=== PATIENT | male | born 1965 | race Caucasian/White ===

== ENCOUNTER 2017-09-30 21:17 | Inpatient (IN) | payer BC ==
[~2017-09-30] VITALS: Ht 167.6 cm; Wt 82.6 kg
[2017-10-01] VITALS: BP 145/87; PULSE 85; RESP 17; TEMP 97.6; O2SAT 95
[2017-10-01 01:05] LABS: HEMOGLOBIN 7.3 GM/DL (13.0-17.0); MEAN CORPUSCULAR HEMOGLOBIN 31.4 PG (27.0-34.0); MEAN CORPUSCULAR HGB CONC 34.9 % (32.0-36.0); MEAN PLATELET VOLUME 7.1 FL (7.0-11.0); PLATELET COUNT 60 TH/MM3 (150-450); RED BLOOD COUNT 2.32 MIL/MM3 (4.50-5.90); RED CELL DISTRIBUTION WIDTH 18.3 % (11.6-17.2); WHITE BLOOD COUNT 4.5 TH/MM3 (4.0-11.0)
[2017-10-01 01:17] LABS: HEMATOCRIT 20.9 % (39.0-51.0)
[2017-10-01] MEDS ORDERED: CURCPOW PO (01:36)
[2017-10-01] MEDS ORDERED: UBID200C3 PO (01:36)
[2017-10-01] MEDS ORDERED: BETA20PO PO (01:36)
[2017-10-01] MEDS ORDERED: [UNRECOGNIZED DRUG - OTHER] PO (01:36)
[2017-10-01] MEDS ORDERED: VITA100T54 PO (01:36)
[2017-10-01] MEDS ORDERED: VITA500T4 PO (01:36)
[2017-10-01] MEDS ORDERED: NORC5TAB PO (01:36)
[2017-10-01] MEDS ORDERED: [UNRECOGNIZED DRUG - OTHER] PO (01:36)
[2017-10-01] MEDS ORDERED: VITA100018 PO (01:36)
[2017-10-01] MEDS ORDERED: METH750T PO (01:36)
[2017-10-01] MEDS ORDERED: METO50TA PO (01:36)
[2017-10-01 01:43] LABS: ALBUMIN 1.8 GM/DL (3.4-5.0); BICARBONATE 21.6 MEQ/L (21.0-32.0); CALCIUM 11.8 MG/DL (8.5-10.1); CALCIUM-PROTEIN CORRECTED 8.7 MG/DL (8.5-10.1); CREATININE 4.7 MG/DL (0.60-1.30); TOTAL BILIRUBIN ADULT 0.4 MG/DL (0.2-1.0); TOTAL PROTEIN 12.8 GM/DL (6.4-8.2)
[2017-10-01 02:36] LABS: ATYPICAL LYMPHOCYTES 9 % (0-0); BANDS 4 % (0-6); BLASTS 1 % (0-0); CORRECTED NUCLEATED RBC 2 /100 WBC (0-0); LYMPHOCYTES 43 % (9-44); METAMYELOCYTES 2 % (0-1); MONOCYTES 7 % (0-8); NEUTROPHIL # MANUAL DIFF 1.6 TH/MM3 (1.8-7.7); NUCLEATED RED BLOOD CELL 2 (0-0); PLASMA CELLS 3 % (0-0); POLYS (SEG NEUTROPHILS) 29 % (16-70)
[2017-10-01 02:37] LABS: ROULEAUX PRESENT (NORMAL)
--- NOTE | 2017-10-01 03:22 | HHI.HP ---
HPI Service [facility] Primary Care Physician Non-Staff Admission Diagnosis Acute Renal Failure . Diagnoses: (1) Acute renal failure (2) Multiple myeloma Chief Complaint: Back pain Travel History International Travel<30 Days: No Contact w/Intl Traveler <30 Da: No History of Present Illness Mr. Ambrosio is a 52 y/o male desiring only holistic treatment of multiple myeloma diagnosed in June 2017 with history of atrial fibrillation s/p cardioversion x 3 - not on anticoagulation, chronic back pain, and right shoulder staph infection who presented to the ER on 09/30/17 at [facility] for evaluation of chronic back pain and inability to ambulate. He was transferred to [facility] because he's noted to be in acute renal failure at [facility] and they had no relations director on duty for the next 2 days. The patient is seen in his hospital room. The patient reports progressively worsening back pain with increasing weakness. Currently rates pain 6/10, aching in quality. Also complaining of left hip "muscle spasm". Denies bowel or bladder incontinence. He has been unable to ambulate for three days. He wants to discuss with his whether or not they would like a second opinion from an oncologist here. He states he believes his kidney problems are related to dehydration and not multiple myeloma and will improve with hydration. Review of Systems Except as stated in HPI: all other systems reviewed are Neg Past Family Social History Past Medical History Atrial fibrillation s/p cardioversion x 3 - not on anticoagulation Multiple Myeloma Chronic back pain Right shoulder staph infection . Past Surgical History denies any prior history . Reported Medications Reported Meds & Active Scripts Active Reported Croydon 5-325 Tablet (Hydrocodone/Acetaminophen) 5 Mg-325 Mg Tablet PO Q4-6H PRN Metoprolol Tartrate 50 Mg Tab 50 Mg PO BID Methocarbamol 750 Mg Tab 750 Mg PO DAILY PRN Beta Glucan (Beta-Glucan, (1-3) (1-4)) 70 % Powder 2,000 Mg PO DAILY [Budwig] PO DAILY [Curcumin] 750 Mg PO DAILY [barley leaf ] 340 Mg PO Vitamin B-12 (Cyanocobalamin) 500 Mcg Tab 2,500 Mcg PO DAILY Vitamin D3 (Cholecalciferol) 1,000 Unit Tab 1,000 Units PO DAILY Coenzyme Q-10 (Ubidecarenone) 200 Mg Capsule 400 Mg PO DAILY Vitamin B-1 (Thiamine HCl) 100 Mg Tab 100 Mg PO DAILY . Allergies: Coded Allergies: aspirin (Verified Allergy, Severe, Hives, 10/01/17) clindamycin (Verified Allergy, Unknown, 10/01/17) Family History Mother with DM Father with heart problems . Social History Tobacco: never smoked Alcohol: drinks 2 - 3 times per month Illicit Drugs: denies . Physical Exam Vital Signs Vital Signs Date Time Temp Pulse Resp B/P (MAP) Pulse Ox O2 Delivery O2 Flow Rate FiO2 10/01/17 00:00 97.6 85 17 145/87 (106) 95 Physical Exam GENERAL: This is a well-nourished, well-developed patient, in no apparent distress. SKIN: No rashes. Cool and dry. HEAD: Atraumatic. Normocephalic. No temporal or scalp tenderness. EYES: No scleral icterus. No injection or drainage. ENT: Nose without bleeding, purulent drainage. Airway patent. NECK: Trachea midline. No JVD. CARDIOVASCULAR: Regular rate and rhythm without murmurs, gallops, or rubs. RESPIRATORY: Clear to auscultation. Breath sounds equal bilaterally. No wheezes , rales, or rhonchi. GASTROINTESTINAL: Abdomen soft, non-tender, nondistended. No guarding. MUSCULOSKELETAL: Extremities without clubbing, cyanosis. NEUROLOGICAL: Awake and alert. Normal speech. . Laboratory Laboratory Tests Test 10/01/17 00:51 White Blood Count 4.5 Red Blood Count 2.32 Hemoglobin 7.3 Hematocrit 20.9 Mean Corpuscular Volume 90.0 Mean Corpuscular Hemoglobin 31.4 Mean Corpuscular Hemoglobin Concent 34.9 Red Cell Distribution Width 18.3 Platelet Count 60 Mean Platelet Volume 7.1 CBC Comment AUTO DIFF Differential Total Cells Counted 100 Neutrophils % (Manual) 29 Band Neutrophils % 4 Lymphocytes % 43 Monocytes % 7 Eosinophils % 2 Neutrophils # (Manual) 1.6 Metamyelocytes 2 Nucleated Red Blood Cells 2 Differential Comment FINAL DIFF MANUAL Atypical Lymphocytes 9 Blastocytes 1 Plasma Cells 3 Platelet Estimate LOW Platelet Morphology Comment NORMAL Basophilic Stippling FAINT Rouleau PRESENT Blood Urea Nitrogen 56 Creatinine 4.70 Random Glucose 89 Total Protein 12.8 Albumin 1.8 Calcium Level 11.8 Alkaline Phosphatase 43 Aspartate Amino Transf (AST/SGOT) 17 Alanine Aminotransferase (ALT/SGPT) 16 Total Bilirubin 0.4 Sodium Level 139 Potassium Level 4.0 Chloride Level 104 Carbon Dioxide Level 21.6 Anion Gap 13 Estimat Glomerular Filtration Rate 13 Protein Corrected Calcium 8.7 Result Diagram: 10/01/175010/01/1750 Caprini VTE Risk Assessment Caprini VTE Risk Assessment: Mod/High Risk (score >= 2) Caprini Risk Assessment Model Point Value = 1 Point Value = 2 Point Value = 3 Point Value = 5 Age 41-60 Minor surgery BMI > 25 kg/m2 Swollen legs Varicose veins or History of unexplained or recurrent spontaneous Oral contraceptives or hormone replacement Sepsis (< 1 month) Serious lung disease, including pneumonia (< 1 month) Abnormal pulmonary function Acute myocardial infarction Congestive heart failure (< 1 month) History of inflammatory bowel disease Medical patient at bed rest Age 61-74 Arthroscopic surgery Major open surgery (> 45 min) Laparoscopic surgery (> 45 min) Malignancy Confined to bed (> 72 hours) Immobilizing plaster cast Central venous access Age >= 75 History of VTE Family history of VTE Factor V Leiden Prothrombin [id number] Lupus anticoagulant Anticardiolipin antibodies Elevated serum homocysteine Heparin-induced thrombocytopenia Other congenital or acquired thrombophilia Stroke (< 1 month) Elective arthroplasty Hip, pelvis, or leg fracture Acute spinal cord injury (< 1 month) Prophylaxis Regimen Total Risk Factor Score Risk Level Prophylaxis Regimen 0-1 Low Early ambulation 2 Moderate Order ONE of the following: *Sequential Compression Device (SCD) *Heparin 5000 units SQ BID 3-4 Higher Order ONE of the following medications: *Heparin 5000 units SQ TID *Enoxaparin/Lovenox 40 mg SQ daily (WT < 150 kg, CrCl > 30 mL/min) *Enoxaparin/Lovenox 30 mg SQ daily (WT < 150 kg, CrCl > 10-29 mL/min) *Enoxaparin/Lovenox 30 mg SQ BID (WT < 150 kg, CrCl > 30 mL/min) AND/OR *Sequential Compression Device (SCD) 5 or more Highest Order ONE of the following medications: *Heparin 5000 units SQ TID (Preferred with Epidurals) *Enoxaparin/Lovenox 40 mg SQ daily (WT < 150 kg, CrCl > 30 mL/min) *Enoxaparin/Lovenox 30 mg SQ daily (WT < 150 kg, CrCl > 10-29 mL/min) *Enoxaparin/Lovenox 30 mg SQ BID (WT < 150 kg, CrCl > 30 mL/min) AND *Sequential Compression Device (SCD) Assessment and Plan Assessment and Plan Mr. Ambrosio is a 52 y/o male desiring only holistic treatment of multiple myeloma diagnosed in June 2017 with history of atrial fibrillation s/p cardioversion x 3 - not on anticoagulation, chronic back pain, and right shoulder staph infection who presented to the ER on 09/30/17 at [facility] for evaluation of chronic back pain and inability to ambulate. He was transferred to [facility] because he's noted to be in acute renal failure at [facility] and they had no relations director on duty for the next 2 days. Acute Renal Failure - BUN 56, creatinine 4.70, and eGFR 13 on admission - IVF with NS at 84 cc/hr - recheck labs in a.m. and follow results - consult nephrology - appreciate assistance - avoid nephrotoxins Osteopenia, compression fractures - CT thoracic and lumbar spine from [place] show thoracic spine: "old compression fx involving t12 without significant change from MRI 07/20. Extensive area f osteopenia involving multiple thoracici vertebral bodies likely reflective of the patient's known multiple myeloma". Lumbar spine: "recent compression fx involving L1 and L3 level new since MRI performed 07/20. No retropulsion. Central disc protrusion at the L2 - L3 level resulting in central stenosis with borderline central stenosis at L4 - L5 and L5 - s1 levels. " - Check left hip x-ray due to patient c/o pain - check MRI thoracic and lumbar spine for further evaluation - Croydon 5/325 mg q4h PRN pain > 4; Robaxin 750 mg q8h prn muscle spasm Multiple Myeloma - s/p two units of PRBCs and 1 unit of platelets at [place] - recheck CBC in a.m. - transfuse as needed - patient will discuss with whether or not they want a second oncology opinion DVT prophylaxis - SCDs/TEDs - chemoprophylaxis contraindicated by severe anemia . Discussed Condition With Patient and RN . Physician Certification 2 Midnight Certification Type: Admission for Inpatient Services Order for Inpatient Services The services are ordered in accordance with Medicare regulations or non- Medicare payer requirements, as applicable. In the case of services not specified as inpatient-only, they are appropriately provided as inpatient services in accordance with the 2-midnight benchmark. Estimated LOS (days): 3 days is the estimated time the patient will need to remain in the hospital, assuming treatment plan goals are met and no additional complications. Post-Hospital Plan: Not yet determined Mercedes Calzada October 01, 2017 03:22
[2017-10-01] MEDS ORDERED: METHOCARBAMOL 500 MG TAB PO PRN (03:30)
[2017-10-01 04:00] VITALS: BP 161/68; PULSE 91; RESP 18; TEMP 97.8; O2SAT 97
[2017-10-01] MEDS: SODIUM CHLOR 0.9% 1000 ML INJ 1,000 ML IV SCH ×3 (05:00→23:14)
[2017-10-01] MEDS ORDERED: LACTULOSE SYRUP 20 GM/30 ML CUP PO PRN (05:00)
[2017-10-01] MEDS ORDERED: SENNOSIDES 8.6 MG TAB PO PRN (05:00)
[2017-10-01] MEDS ORDERED: ONDANSETRON HCL 4 MG/2 ML VIAL IVP PRN (05:00)
[2017-10-01] MEDS ORDERED: BISACODYL 10 MG SUPP RECTAL PRN (05:00)
[2017-10-01] MEDS ORDERED: ACETAMINOPHEN 325 MG TAB PO PRN (05:00)
[2017-10-01] MEDS ORDERED: SODIUM CHLORIDE 0.9% FLUSH 10 ML FLUSH IV FLUSH PRN (05:15)
[2017-10-01 08:00] VITALS: BP 136/69; PULSE 99; RESP 17; TEMP 97.8; O2SAT 93
[2017-10-01] MEDS: SODIUM CHLORIDE 0.9% FLUSH 10 ML FLUSH IV FLUSH SCH ×2 (09:00→21:00)
[2017-10-01] MEDS: ACETAMINOPHEN/HYDROcodone 325 MG/5 MG TAB PO PRN ×3 (10:47→23:12)
[2017-10-01] MEDS: METOPROLOL TARTRATE 50 MG TAB PO SCH ×2 (10:48→23:13)
[2017-10-01 12:00] VITALS: BP 137/84; PULSE 71; RESP 19; TEMP 97.5; O2SAT 96
--- NOTE | 2017-10-01 15:24 | PD.CONS ---
Consult Service Palliative Care Consult Requested By Dr Sanchez Primary Care Physician Non-Staff Reason for Consultation a. To assist with evaluation and management of symptoms including: pain b. To assist medical decision maker(s) with: better understanding of current medical conditions; weighing benefits/burdens of medical treatment options; making medical treatment decisions. HPI History of Present Illness This 52-year-old patient was transferred here from [facility] on , for further evaluation by a dipper and drier as that service was not available at that medical facility. He apparently presented to the ED there 09/30/17 for evaluation of chronic back pain and inability to ambulate. He was noted to be in acute renal failure and they requested transfer here to be treated by nephrology. Patient has known history of multiple myeloma diagnosed in June of this year desiring "only holistic treatment ", as well as atrial fibrillation status post cardioversion 3, no anticoagulation, chronic back pain and right shoulder staph infection. Status post treatment 2 units RBCs, 1 unit platelet at [facility]. Upon evaluation here patient reports progressive worsening back pain with increasing weakness. He rated the pain 6 out of 10. He also reported left hip muscle spasm pain. Denied bowel or bladder dysfunction. Reports unable to ambulate 3 days. He wished to discuss further with his whether or not they would seek a second opinion from oncology here. He felt his kidney problems were secondary to dehydration and not multiple myeloma and might improve with hydration. ROS otherwise negative. * Nephrology consultation pending. Patient noted with BUN 56, creatinine 4.78. Started on IV fluid normal saline. Repeat CBC, chemistry for tomorrow. * Patient with osteopenia imaging from other facility=CT thoracic and lumbar spine from [facility] thoracic spine: "old compression fx involving t12 without significant change from MRI 07/20. Extensive area f osteopenia involving multiple thoracici vertebral bodies likely reflective of the patient' s known multiple myeloma". Lumbar spine: "recent compression fx involving L1 and L3 level new since MRI performed 07/20. No retropulsion. Central disc protrusion at the L2 - L3 level resulting in central stenosis with borderline central stenosis at L4 - L5 and L5 - s1 levels." Imaging left hip ordered here , MRI thoracic and lumbar spine also ordered. Ordered for Novi 5 mg, Robaxin, as needed for muscle spasms, pain. Pt seen in room as Nephrology PA completing assessment/interview. Pt is alert, oriented, appropriate. At times is forgetful. Pleasant, cooperative. Dr Titus, nephrology, also in during our discussion. . Function/Cognitive Trajectory Lives at home with his who has recently become his primary caregiver. He has essentially been primarily bedbound in the past few weeks due to pain and weakness. He has been able to ambulate short distances a few feet around the bed with assistance from his to use the restroom or bedside commode. No cognitive deficits reported. . Review of Systems Constitutional: COMPLAINS OF: Fatigue, Weight loss (30-60 pounds this year), Change in appetite (Generalized decreased appetite), Pain (Ongoing back pain worsened in the past days to weeks), Generalized weakness, DENIES: Fever, Chills , Dizziness Endocrine: DENIES: Heat/cold intolerance Eyes: DENIES: Vision loss Ears, nose, mouth, throat: DENIES: Oral lesions, Throat pain, Hoarseness Respiratory: COMPLAINS OF: Cough (Endorses intermittent cough though none recently), DENIES: Wheezing, Sputum production, Shortness of breath Cardiovascular: DENIES: Chest pain, Palpitations, Lower Extremity Edema Gastrointestinal: COMPLAINS OF: Anorexia, DENIES: Abdominal pain, Constipation , Diarrhea, Nausea, Vomiting, Difficulty Swallowing, Dyspepsia or heartburn Genitourinary: DENIES: Urinary frequency, Urinary incontinence, Dysuria Musculoskeletal: COMPLAINS OF: Back pain Integumentary: DENIES: Rash Hematologic/Lymphatics: COMPLAINS OF: Bruising Neurologic: DENIES: Headache, Speech Problems Past Family Social History Coded Allergies: aspirin (Verified Allergy, Severe, Hives, 10/01/17) clindamycin (Verified Allergy, Unknown, 10/01/17) Past Medical History Atrial fibrillation s/p cardioversion x 3 - not on anticoagulation Multiple Myeloma Chronic back pain Right shoulder staph infection . Past Surgical History denies any prior history . Reported Medications Novi 5-325 Tablet (Hydrocodone/Acetaminophen) 5 Mg-325 Mg Tablet PO Q4-6H PRN Metoprolol Tartrate 50 Mg Tab 50 Mg PO BID Methocarbamol 750 Mg Tab 750 Mg PO DAILY PRN Beta Glucan (Beta-Glucan, (1-3) (1-4)) 70 % Powder 2,000 Mg PO DAILY [Budwig] PO DAILY [Curcumin] 750 Mg PO DAILY [barley leaf ] 340 Mg PO Vitamin B-12 (Cyanocobalamin) 500 Mcg Tab 2,500 Mcg PO DAILY Vitamin D3 (Cholecalciferol) 1,000 Unit Tab 1,000 Units PO DAILY Coenzyme Q-10 (Ubidecarenone) 200 Mg Capsule 400 Mg PO DAILY Vitamin B-1 (Thiamine HCl) 100 Mg Tab 100 Mg PO DAILY . Current Medications Medications (Trade) Dose Ordered Sig/Nubia Route Start Time Stop Time Status Last Admin (Lopressor) 50 mg BID PO 10/01/17 09:00 10/01/17 10:48 (Novi 5-325 Mg) 1 tab Q4H PRN PO 10/01/17 03:30 10/01/17 10:47 (Robaxin) 750 mg Q8HR PRN PO 10/01/17 03:30 Sodium Chloride 1,000 ml @ 84 mls/hr [id number] IV 10/01/17 05:00 10/01/17 05:00 (Tylenol) 650 mg Q4H PRN PO 10/01/17 05:00 (Zofran Inj) 4 mg Q6H PRN IVP 10/01/17 05:00 (Senokot) 17.2 mg Q12H PRN PO 10/01/17 05:00 (Dulcolax Supp) 10 mg DAILY PRN RECTAL 10/01/17 05:00 (Lactulose Liq) 30 ml DAILY PRN PO 10/01/17 05:00 (NS Flush) 2 ml UNSCH PRN IV FLUSH 10/01/17 05:15 (NS Flush) 2 ml BID IV FLUSH 10/01/17 09:00 10/01/17 09:00 Family History Mother with DM Father with heart problems . Substance Use Tobacco: Lifetime non-smoker Alcohol: Drinks 2-3 times per month Prescription med abuse: None Illicits: None . Psychosocial History Was working until recently when his multiple myeloma diagnosis has prevented him from working. 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 to his since 1999, they met at work. He has no children, though she has children from prior marriage. . Spiritual/Cultural Factors Indicates previously Baptism bryon . Living Will: Completed, but not made available Health Care Surrogate: Completed, but not made available Ethical and Legal Issues Patient currently alert and oriented, appears to have insight and able to make his own decisions. He reports his is designated healthcare surrogate. Request them to bring copies of these documents. In absence of documentation his would be appropriate legal proxy per [place] statutes. . Physical Exam Vital Signs Date Time Temp Pulse Resp B/P (MAP) Pulse Ox O2 Delivery O2 Flow Rate FiO2 10/01/17 12:00 97.5 71 19 137/84 (101) 96 10/01/17 08:00 97.8 99 17 136/69 (91) 93 10/01/17 04:00 97.8 91 18 161/68 (99) 97 10/01/17 00:00 97.6 85 17 145/87 (106) 95 Exam CONSTITUTIONAL/GENERAL: This is a thin, frail, chronically ill-appearing man. TUBES/LINES/DRAINS: Peripheral IV upper extremities. SKIN: No jaundice, rashes, or lesions. small ecchymosis left wrist area . No wounds seen anteriorly. Skin warm/dry. Pale. HEAD: Atraumatic. Normocephalic. EYES: Pupils equal and round and reactive. Extraocular motions intact. No scleral icterus. No injection or drainage. Fundi not examined. ENT: Hearing grossly normal. Nose without bleeding or purulent drainage. Throat without visible erythema, exudates, masses, or lesions. NECK: Trachea midline. Supple, nontender. No palpable thyroid enlargement or nodularity. CARDIOVASCULAR: Regular rate and rhythm without murmur. No JVD. Peripheral pulses symmetric. RESPIRATORY/CHEST: Symmetric, unlabored respirations. Lungs are clear on room air. Breath sounds equal bilaterally. GASTROINTESTINAL: Abdomen soft, non-tender, nondistended. No hepato-splenomegaly , or palpable masses. No guarding. Bowel sounds present. GENITOURINARY: Without palpable bladder distension. Void to urinal observe clear yellow urine present MUSCULOSKELETAL: Extremities without clubbing, cyanosis, or edema. No joint tenderness or effusion noted. No calf tenderness. No mottling or clubbing. LYMPHATICS: No palpable cervical or supraclavicular adenopathy. NEUROLOGICAL: Awake and alert, oriented 3 though forgetful at times. Appears to have reasonable insight and judgment. Motor and sensory grossly within normal limits. Follows commands. Cognitively sharp. Moves all extremities. PSYCHIATRIC: No obvious anxiety/depression. no apparent hallucinations or other psychotic thought process. Diagnostic Tests Laboratory Laboratory Tests Test 10/01/17 00:51 White Blood Count 4.5 TH/MM3 (4.0-11.0) Red Blood Count 2.32 MIL/MM3 (4.50-5.90) Hemoglobin 7.3 GM/DL (13.0-17.0) Hematocrit 20.9 % (39.0-51.0) Mean Corpuscular Volume 90.0 FL (80.0-100.0) Mean Corpuscular Hemoglobin 31.4 PG (27.0-34.0) Mean Corpuscular Hemoglobin Concent 34.9 % (32.0-36.0) Red Cell Distribution Width 18.3 % (11.6-17.2) Platelet Count 60 TH/MM3 (150-450) Mean Platelet Volume 7.1 FL (7.0-11.0) CBC Comment AUTO DIFF Differential Total Cells Counted 100 Neutrophils % (Manual) 29 % (16-70) Band Neutrophils % 4 % (0-6) Lymphocytes % 43 % (9-44) Monocytes % 7 % (0-8) Eosinophils % 2 % (0-4) Neutrophils # (Manual) 1.6 TH/MM3 (1.8-7.7) Metamyelocytes 2 % (0-1) Nucleated Red Blood Cells 2 /100 WBC (0-0) Differential Comment FINAL DIFF MANUAL Atypical Lymphocytes 9 % (0-0) Blastocytes 1 % (0-0) Plasma Cells 3 % (0-0) Platelet Estimate LOW (NORMAL) Platelet Morphology Comment NORMAL (NORMAL) Basophilic Stippling FAINT (NORMAL) Rouleau PRESENT (NORMAL) Blood Urea Nitrogen 56 MG/DL (7-18) Creatinine 4.70 MG/DL (0.60-1.30) Random Glucose 89 MG/DL (74-106) Total Protein 12.8 GM/DL (6.4-8.2) Albumin 1.8 GM/DL (3.4-5.0) Calcium Level 11.8 MG/DL (8.5-10.1) Alkaline Phosphatase 43 U/L (45-117) Aspartate Amino Transf (AST/SGOT) 17 U/L (15-37) Alanine Aminotransferase (ALT/SGPT) 16 U/L (12-78) Total Bilirubin 0.4 MG/DL (0.2-1.0) Sodium Level 139 MEQ/L (136-145) Potassium Level 4.0 MEQ/L (3.5-5.1) Chloride Level 104 MEQ/L (98-107) Carbon Dioxide Level 21.6 MEQ/L (21.0-32.0) Anion Gap 13 MEQ/L (5-15) Estimat Glomerular Filtration Rate 13 ML/MIN (>89) Protein Corrected Calcium 8.7 MG/DL (8.5-10.1) Result Diagram: 10/01/17 00510/01/17 005 Patient/Family Conference Family Conference Time (mins): 45 Family Conference Location: Bedside Issues Discussed: Met w pt at length at bedside. (nephrology present for parts of conversation) Discussion included the following: * Palliative care role, purpose, approach * Additional medical, psychosocial, and spiritual history * Patients general health, functional status, and cognitive changes in the months leading up to the current hospitalization * Patient/family understanding of the current medical problems * Patient/family understanding of prognosis * Patients goals of care * Current medical treatment options and benefits/burdens of those options * Code status- full code by default----> he will discuss further with his . * Questions answered to the best of my ability * Palliative care contact information provided Patient appears to have a reasonable general understanding of his conditions and disease process. He indicates he has done extensive research on the Internet regarding benefits and burdens of chemotherapy and aggressive oncology interventions and elected to forego traditional oncology treatment for his multiple myeloma. He indicates he has not found an accepting oncologist due to him being unwilling to accept traditional treatments. He is indicates he has had ongoing anemia which is actually what led to his diagnosis in June. He indicates the supplement and vitamin regimen that he has researched has seen some success and he is hopeful to achieve some remission of his disease process. He has tried acupuncture. He had to stop this when his back pain got so severe that the person performing this could not continue. He indicates he has had renal fluctuations and issues in the past though generally "all of his lab levels have been okay ". Explore with him the potential for to disease progression and the negative implications that could have on his renal function, as well as the rest of his body systems. Explore with him possibility of worsening spinal fractures related to osteopenia, disease process, he is in agreement to proceed with MRI. He indicates that he refused because it was too painful to lie still for the MRI but he would agree to obtain it if it may provide additional treatment guidance, if he can have additional dose of pain medication prior to. Assessment and Plan Disease Oriented Problem List: (1) Hypercalcemia (2) Acute renal failure (3) Anemia (4) Multiple myeloma (5) Compression fx, lumbar spine (6) Atrial fibrillation status post cardioversion (7) Back pain (8) Right shoulder pain Comment: hx staph infection . Symptom Scale: (1) Pain 0-10 Scale: 8 Pertinent Non-Medical Issues Psychosocial: Spiritual: Legal:Patient currently alert and oriented, appears to have insight and able to make his own decisions. He reports his is designated healthcare surrogate. Request them to bring copies of these documents. In absence of documentation his would be appropriate legal proxy per [place] statutes. Ethical issues impacting care:none identified . Important Contacts Tammie Ambrosio [phone] . Prognosis This patient was transferred from [facility] here for further evaluation of acute renal failure. He has underlying history of multiple myeloma, diagnosed in June of this year. He has not undergone any aggressive treatment for this. Has been treating holistically. He has most recently been primarily bedbound, with significant pain and weakness to his back. He appears to have some recent compression fractures to L spine, likely secondary to osteopenia, underlying multiple myeloma. He is at risk for ongoing complications and continued decline secondary to progression of disease process. He is unlikely to achieve disease remission without aggressive oncology intervention. . Code Status: Full Code Plan Legal decision maker:Patient currently alert and oriented, appears to have insight and able to make his own decisions. He reports his is designated healthcare surrogate. Request them to bring copies of these documents. In absence of documentation his would be appropriate legal proxy per [place] statutes. Goals: Met with patient at length at bedside. He appears to have reasonable understanding of his disease process and possible prognosis. He indicates he is done much research online and is elected to not undergo chemo or radiation therapies due to concern for severe side effects. He has been primarily treating this holistically-with oral vitamin and herbal supplements. He has also undergone acupuncture until his back pain became so severe that the acupuncture provider did not wish to proceed. He does not believe his kidney issues are secondary to disease process. He does not believe at this time that his back pain may be secondary to disease process. I have explored with him that if the multiple myeloma is progressing, which it would be expected to do without conventional treatment and likely this will continue to impact his kidney function, as well as other body systems and will ultimately result in decreased life expectancy. His will be returning tomorrow morning, plan to follow-up with her as well. He will plan to discuss code status further with his . ---> He is open to oncology consultation here, recommend proceed with oncology consultation ---> He indicates he is amenable to proceeding with MRI if he can have additional IV dosing of pain medication before procedure. Consider one-time dose prn(x1)hydromorphone 0.25 mg IV ---> Recommend obtaining medical records from his primary provider to establish baseline (in [facility] he indicates this is Dr Glenys Jonas-- though I cannot find a provider under this name ) CODE STATUS: full code by default. SYMPTOMS: --Pain-patient indicates ongoing back pain for the past month or so worsened significantly in the past several days to week such that he has been primarily bedbound. Recent imaging per [facility] facility showed old compression fracture, osteopenia, lumbar spine with possible new recent compression fracture L1 and L3. Patient also with stenosis at L4, 5 and L5, S1. Has additional imaging studies ordered here MRI thoracic and lumbar spine which he is apparently refused. He indicates he is too painful at this time to lay still for additional imaging. He also asked me what additional benefit this imaging would provide him. Advised that this will further help to distinguish what type of injury he may have to his back and what if any nerve or spinal cord involvement there may be to further guide treatment going forward. Further explore that this may be related to underlying disease process and can certainly be contributing to pain syndromes he is currently experiencing. He indicates he is amenable to proceeding with MRI if he can have additional IV dosing of pain medication before procedure. Consider one-time dose prn(x1) hydromorphone 0.25 mg IV. He indicates at home was using large amounts of over- the-counter ibuprofen to manage this pain. He indicates that Novi ordered here in the hospital does not really seem to help the pain very much; although he is only used 1 dose. Recommend he use a few more doses, May consider Novi 10 if additional doses of Novi 5 ineffective. --Weight loss/poor appetite -likely secondary to disease process. He indicates that he lost around 30 pounds at initial diagnosis with myeloma around June, and he may have lost another 30 pounds since then due to "eating healthier ". He indicates that generally he just does not feel hungry, and less it is a food item that he really likes. May benefit from an appetite stimulant though he may be reluctant to take as he prefers holistic treatments and generally does not welcome chemical substances. Palliative care will continue to follow during hospital course as condition evolves, to assist patient/decision-maker with understanding of medical conditions, weighing benefits/burdens of treatment options, for clarification of goals of treatment. Additionally will assist with any symptoms of palliative concern . Time Spent Total Floor Time (mins): 70 (chart review, PE, dw/ pt , d/w nephrology ) Thank you for the opportunity to participate in the care of Mr. Ambrosio. Attestation To help prompt me to consider important information that might be impacting today's encounter and assessment, information from prior notes written by myself or my colleagues may have been "brought forward" into today's note. My signature on this note, however, is an attestation that I personally performed the exam, history, and/or decision-making noted today, and, unless otherwise indicated, the interactions with patient, family, and staff as well as the review of records all occurred today. I also attest that the listed assessment and stated plan reflect my best clinical judgment today based on the combination of historical information, prior notes, and today's exam/ interactions. When time spent is documented, it refers only to time spent today by the signer, or if indicated, combined time spent today by collaborating physician/nurse practitioner. Flora Car October 01, 2017 15:24
[2017-10-01 16:00] VITALS: BP 122/72; PULSE 81; RESP 17; TEMP 97.7; O2SAT 97
--- NOTE | 2017-10-01 16:16 | PD.CONS ---
HPI Service Nephrology Consult Requested By TED [facility] Reason for Consult [facility] Primary Care Physician Non-Staff History of Present Illness The patient is a 52 yo [place] male who was transported to this facility from [facility] in [place]. He has a hx of multiple myeloma that was diagnosed in Jun 2017, but does not have an oncologist as he has opted to pursue only holistic medicine in regards to his MM treatment. Says that he follows rather closely with his PCP, Dr. Echeverria, in [place]. Reports that he has been having significant back and hip pain for at least the past month and has been overall bedridden because of this---this is ultimately why he sought care at [facility]. We have been consulted for evaluation of renal failure. States that he has been told that his renal functions were declined in the past, but "improved with hydration." There are no other labs available to me for review at time of interview. His admitting SCr is 4.70 with eGFR of 13 He has a significantly elevated serum calcium of 11.8 Albumin 1.8. No urinalysis has been performed. He does report a significant use of OTC NSAIDs to help combat his back pain. He is open to general treatment, but does not want any chemotherapy or radiation. No family present during interview. (Silvia Tovar) Review of Systems Constitutional: COMPLAINS OF: Change in appetite Musculoskeletal: COMPLAINS OF: Joint pain, Stiffness, Back pain (Silvia Tovar) Past Family Social History Allergies: Coded Allergies: aspirin (Verified Allergy, Severe, Hives, 10/01/17) clindamycin (Verified Allergy, Unknown, 10/01/17) Past Medical History Multiple Myeloma dx in Jun 2017 Atrial fibrillation s/p cardiac ablation x3 Past Surgical History Denies Reported Medications [place] 5-325 Tablet (Hydrocodone/Acetaminophen) 5 Mg-325 Mg Tablet PO Q4-6H PRN Metoprolol Tartrate 50 Mg Tab 50 Mg PO BID Methocarbamol 750 Mg Tab 750 Mg PO DAILY PRN Beta Glucan (Beta-Glucan, (1-3) (1-4)) 70 % Powder 2,000 Mg PO DAILY [Budwig] PO DAILY [Curcumin] 750 Mg PO DAILY [barley leaf ] 340 Mg PO Vitamin B-12 (Cyanocobalamin) 500 Mcg Tab 2,500 Mcg PO DAILY Vitamin D3 (Cholecalciferol) 1,000 Unit Tab 1,000 Units PO DAILY Coenzyme Q-10 (Ubidecarenone) 200 Mg Capsule 400 Mg PO DAILY Vitamin B-1 (Thiamine HCl) 100 Mg Tab 100 Mg PO DAILY Active Ordered Medications Current Medications Medications (Trade) Dose Ordered Sig/Nubia Route Start Time Stop Time Status Last Admin (Lopressor) 50 mg BID PO 10/01/17 09:00 10/01/17 10:48 ([place] 5-325 Mg) 1 tab Q4H PRN PO 10/01/17 03:30 10/01/17 10:47 (Robaxin) 750 mg Q8HR PRN PO 10/01/17 03:30 Sodium Chloride 1,000 ml @ 84 mls/hr [id number] IV 10/01/17 05:00 10/01/17 05:00 (Tylenol) 650 mg Q4H PRN PO 10/01/17 05:00 (Zofran Inj) 4 mg Q6H PRN IVP 10/01/17 05:00 (Senokot) 17.2 mg Q12H PRN PO 10/01/17 05:00 (Dulcolax Supp) 10 mg DAILY PRN RECTAL 10/01/17 05:00 (Lactulose Liq) 30 ml DAILY PRN PO 10/01/17 05:00 (NS Flush) 2 ml UNSCH PRN IV FLUSH 10/01/17 05:15 (NS Flush) 2 ml BID IV FLUSH 10/01/17 09:00 10/01/17 09:00 Family History DM CAD Social History Lives in [facility] . Has step-children Denies tobacco use Occasional EtOH use Denies illicits (Silvia Tovar) Physical Exam Vital Signs Vital Signs Date Time Temp Pulse Resp B/P (MAP) Pulse Ox O2 Delivery O2 Flow Rate FiO2 10/01/17 12:00 97.5 71 19 137/84 (101) 96 10/01/17 08:00 97.8 99 17 136/69 (91) 93 10/01/17 04:00 97.8 91 18 161/68 (99) 97 10/01/17 00:00 97.6 85 17 145/87 (106) 95 Physical Exam GENERAL: Laying in bed. NAD SKIN: Warm and dry. HEAD: Atraumatic. Normocephalic. EYES: Pupils equal and round. No scleral icterus. No injection or drainage. ENT: No nasal bleeding or discharge. Mucous membranes pink and moist. NECK: Trachea midline. No JVD. CARDIOVASCULAR: Regular rate and rhythm. RESPIRATORY: No accessory muscle use. Clear to auscultation. Breath sounds equal bilaterally. GASTROINTESTINAL: Abdomen soft, non-tender, nondistended. Hepatic and splenic margins not palpable. MUSCULOSKELETAL: Extremities without clubbing, cyanosis, or edema. No obvious deformities. NEUROLOGICAL: Awake and alert. Normal speech. PSYCHIATRIC: Appropriate mood and affect; insight and judgment normal. Laboratory Laboratory Tests Test 10/01/17 00:51 White Blood Count 4.5 Red Blood Count 2.32 Hemoglobin 7.3 Hematocrit 20.9 Mean Corpuscular Volume 90.0 Mean Corpuscular Hemoglobin 31.4 Mean Corpuscular Hemoglobin Concent 34.9 Red Cell Distribution Width 18.3 Platelet Count 60 Mean Platelet Volume 7.1 CBC Comment AUTO DIFF Differential Total Cells Counted 100 Neutrophils % (Manual) 29 Band Neutrophils % 4 Lymphocytes % 43 Monocytes % 7 Eosinophils % 2 Neutrophils # (Manual) 1.6 Metamyelocytes 2 Nucleated Red Blood Cells 2 Differential Comment FINAL DIFF MANUAL Atypical Lymphocytes 9 Blastocytes 1 Plasma Cells 3 Platelet Estimate LOW Platelet Morphology Comment NORMAL Basophilic Stippling FAINT Rouleau PRESENT Blood Urea Nitrogen 56 Creatinine 4.70 Random Glucose 89 Total Protein 12.8 Albumin 1.8 Calcium Level 11.8 Alkaline Phosphatase 43 Aspartate Amino Transf (AST/SGOT) 17 Alanine Aminotransferase (ALT/SGPT) 16 Total Bilirubin 0.4 Sodium Level 139 Potassium Level 4.0 Chloride Level 104 Carbon Dioxide Level 21.6 Anion Gap 13 Estimat Glomerular Filtration Rate 13 Protein Corrected Calcium 8.7 (Silvia Tovar) Result Diagram: 10/01/175010/01/1750 Assessment and Plan Problem List: (1) Acute renal failure ICD Codes: N17.9 - Acute kidney failure, unspecified Plan: His acute renal failure is likely multifactorial: NSAID exposure, dehydration related to poor oral intake worsened by hypercalcemia, vasospasm related to hypercalcemia, and/or the potential for myeloma involvement of the kidneys. Increase IVF to 150mL/hr Will start on Calcitonin to help correct hypercalcemia Will order MM panel. Will try to obtain records from his GP in [place] whom he says has all recent labs and MM records. He is open to having oncology evaluation here. Will defer to primary to order this. A long discussion was had with the patient regarding his renal impairment. Hopefully renal functions will improve with correction of hypercalcemia and hydration, but this remains to be seen. If he does have MM involvement in the kidneys, was advised that treatment of multiple myeloma is definitively the treatment of his renal disease. Medications should be adjusted for the patient's renal decline. Avoid nephrotoxic medications including iodinated contrast dyes and NSAIDs. (2) Hypercalcemia ICD Codes: E83.52 - Hypercalcemia Plan: As above. Increase IVF Calcitonin ordered. Will defer bisphosphonate at the present given his renal failure. (3) Multiple myeloma ICD Codes: C90.00 - Multiple myeloma not having achieved remission Status: Chronic Plan: Agreeable to oncology opinion, Will defer to primary to order (4) Anemia ICD Codes: D64.9 - Anemia, unspecified Plan: Repeat CBC with Fe panel (Silvia Tovar) Assessment and Plan Discussed with patient the probable pathogenesis of his renal insufficiency. There may be an acute component related to dehydration and hypercalcemia as well as a more chronic component related to underlying multiple myeloma with associated monoclonal gammopathy which could have resulted in light chain cast nephropathy or amyloid kidney. The patient apparently is pursuing holistic treatment of his multiple myeloma primarily from information obtained over the Internet. I discussed with him that information obtained this way may not be entirely accurate or reliable and that without adequate treatment of his underlying myeloma he could develop end- stage renal disease with associated consequences. I recommended an oncology consultation. Apparently he is not being actively followed by an oncologist at this time. Aggressive hydration with normal saline as indicated above with calcitonin. Consider biphosphonate therapy if his hypercalcemia persists and renal function improves. The exam, history, and the medical decision-making described in the above note were completed with the assistance of the PAAyaz. I reviewed and agree with the findings presented. I attest that I had a [id number] encounter with the patient on the same day, and personally performed and documented my assessment and findings in the medical record. (Eliseo Titus MD) Silvia Tovar October 01, 2017 16:16 Eliseo Titus MD October 01, 2017 18:01
[2017-10-01] MEDS: CALCITONIN SALMON INJ 400 UNITS/2 ML VIAL SQ SCH (18:46)
[2017-10-01 20:00] VITALS: BP 146/87; PULSE 72; PULSE 88; RESP 20; TEMP 97.3; O2SAT 97
[2017-10-02] VITALS (7 sets, daily range): BP systolic 117–139; BP diastolic 75–88; PULSE 66–85; RESP 17–20; TEMP 97.4–98.3; O2SAT 95–96
[2017-10-02] MEDS: SODIUM CHLOR 0.9% 1000 ML INJ 1,000 ML IV SCH ×4 (05:59→19:00)
[2017-10-02] MEDS: CALCITONIN SALMON INJ 400 UNITS/2 ML VIAL SQ SCH ×2 (06:00→17:50)
[2017-10-02 06:21] LABS: COMPLEMENT C4 17 MG/DL (10-40)
[2017-10-02 07:02] LABS: % SATURATION IRON PROFILE 93.8 % (20-50); ALBUMIN 1.8 GM/DL (3.4-5.0); BICARBONATE 19.8 MEQ/L (21.0-32.0); BLOOD UREA NITROGEN 48 MG/DL (7-18); CALCIUM 10.7 MG/DL (8.5-10.1); CHLORIDE 108 MEQ/L (98-107); CREATININE 3.87 MG/DL (0.60-1.30); GLOMERULAR FILTRATION RATE 16 ML/MIN (>89); GLUCOSE,RANDOM 81 MG/DL (74-106); IMMUNOGLOBULIN G 161 MG/DL (660-1640); IMMUNOGLOBULIN M LESS THAN 8 MG/DL (40-247); IRON (FE) 126 MCG/DL (65-175); KAPPA LAMBDA RATIO 0.02 (1.57-3.93); KAPPA LIGHT CHAIN 37 MG/DL (170-370); LAMBDA LIGHT CHAIN 1750 MG/DL (90-210); PHOSPHORUS 4.4 MG/DL (2.5-4.9); SODIUM (NA) 141 MEQ/L (136-145); TOTAL IRON BINDING CAPACITY 134 MCG/DL (250-450); TOTAL PROTEIN 12.5 GM/DL (6.4-8.2)
--- NOTE | 2017-10-02 08:59 | HHI.PR ---
Subjective Remarks In bed, family at bedside. Patient is however overwhelmed with the new diagnosis. He complaints of back pain , norco is not heling Also wants to go to MRI however says he has pain inhis back, will premedicate. Says hernandez is radiating like a belt over his belly. No n/v/d/c. Patient wants further work up at this time however he is not decided if he wants aggressive treatment. Objective Vitals Vital Signs Date Time Temp Pulse Resp B/P (MAP) Pulse Ox O2 Delivery O2 Flow Rate FiO2 10/02/17 04:00 98.0 85 18 134/86 (102) 95 10/02/17 00:00 66 10/02/17 00:00 97.4 82 18 132/88 (103) 96 10/01/17 20:00 72 10/01/17 20:00 97.3 88 20 146/87 (106) 97 10/01/17 16:00 97.7 81 17 122/72 (89) 97 10/01/17 12:00 97.5 71 19 137/84 (101) 96 I/O 10/01/17 10/01/17 10/01/17 10/02/17 10/02/17 10/02/17 07:00 15:00 23:00 07:00 15:00 23:00 Intake Total 240 ml 400 ml 1000 ml Output Total 1300 ml 600 ml 1800 ml Balance -1060 ml -200 ml -800 ml Intake Oral 240 ml 400 ml IV Total 1000 ml Output Urine Total 1300 ml 600 ml 1800 ml # Bowel Movements 1 Result Diagram: 10/01/17 0051 10/02/17 0450 Imaging Last Impressions Thoracic Spine MRI 10/02/17 0000 Signed Impressions: CONCLUSION: 1. Old compression fractures of T12 and L1. 2. No abnormal signal identified within the thoracic cord. 3. Degenerated discs throughout the mid and lower thoracic spine with small br oad-based disc bulges but no significant neural foraminal stenosis or spinal st enosis. Lumbar Spine MRI 10/02/17 0000 Signed Impressions: CONCLUSION: 1. Moderate size posterior central to right parasagittal protrusion at the L2- 3 level with mass effect on the thecal sac. 2. Disc bulges at the L3-4 through L5-S1 levels. 3. Multiple compression fracture deformities which appear chronic. 4. Abnormal marrow signal involving the T12 and L1 vertebral bodies as well as portions of the sacrum. This is of concern for the patient's known myeloma. 5. Degenerative disc and degenerative joint changes. Objective Remarks GENERAL: This is a well-nourished, well-developed patient, in no apparent distress. CARDIOVASCULAR: Regular rate and rhythm without murmurs, gallops, or rubs. RESPIRATORY: Clear to auscultation. Breath sounds equal bilaterally. No wheezes , rales, or rhonchi. GASTROINTESTINAL: Abdomen soft, non-tender, nondistended. No guarding. MUSCULOSKELETAL: Extremities without clubbing, cyanosis. NEUROLOGICAL: Awake and alert. Normal speech. A/P Problem List: (1) Acute renal failure ICD Code: N17.9 - Acute kidney failure, unspecified (2) Multiple myeloma ICD Code: C90.00 - Multiple myeloma not having achieved remission Status: Chronic Assessment and Plan Mr. Ambrosio is a 52 y/o male desiring only holistic treatment of multiple myeloma diagnosed in June 2017 with history of atrial fibrillation s/p cardioversion x 3 - not on anticoagulation, chronic back pain, and right shoulder staph infection who presented to the ER on 09/30/17 at [facility] for evaluation of chronic back pain and inability to ambulate. He was transferred to [facility] because he's noted to be in acute renal failure at [facility] and they had no financial aid administrator on duty for the next 2 days. Acute Renal Failure BUN 56, creatinine 4.70, and eGFR 13 on admission IVF with NS at 84 cc/hr recheck labs in a.m. and follow results consult nephrology - appreciate assistance avoid nephrotoxins Osteopenia, compression fractures CT thoracic and lumbar spine from [place] show thoracic spine: "old compression fx involving t12 without significant change from MRI 07/20. Extensive area f osteopenia involving multiple thoracici vertebral bodies likely reflective of the patient's known multiple myeloma". Lumbar spine: "recent compression fx involving L1 and L3 level new since MRI performed 07/20. No retropulsion. Central disc protrusion at the L2 - L3 level resulting in central stenosis with borderline central stenosis at L4 - L5 and L5 - s1 levels." Check left hip x-ray due to patient c/o pain check MRI thoracic and lumbar spine for further evaluation [place] 5/325 mg q4h PRN pain > 4; Robaxin 750 mg q8h prn muscle spasm Multiple Myeloma s/p two units of PRBCs and 1 unit of platelets at [place] recheck CBC in a.m. - transfuse as needed patient will discuss with whether or not they want a second oncology opinion DVT prophylaxis - SCDs/TEDs - chemoprophylaxis contraindicated by severe anemia Discussed Condition With Patient, nurse Clover Sanchez MD October 02, 2017 08:59
[2017-10-02] MEDS ORDERED: HYDROmorphone HCL PF 1 MG/ML VIAL IV PUSH ONE (09:15)
[2017-10-02] MEDS: METOPROLOL TARTRATE 50 MG TAB PO SCH ×2 (10:11→20:46)
[2017-10-02] MEDS: SODIUM CHLORIDE 0.9% FLUSH 10 ML FLUSH IV FLUSH SCH ×2 (10:11→20:46)
--- NOTE | 2017-10-02 10:44 | HHI.HCPN ---
Reason for visit a. To assist with evaluation and management of symptoms including: pain b. To assist medical decision maker(s) with: better understanding of current medical conditions; weighing benefits/burdens of medical treatment options; making medical treatment decisions. Subjective/Interval History Patient seen today to follow-up on pain, goals before my arrival to unit received a voicemail from indicated she will be at bedside this morning discussions with patient. Patient has remained stable overnight. Renal function slightly improving BUN 48 down from 56. Creatinine 3.7 down from 4.74. GFR 16. Hepatitis B, C antigen negative. Additional serology, immunology labs pending per nephrology. Patient voiding, having bowel movements. Has used a total of 3 doses Elmer 5 p.o. in the past 24 hours. Initially met with , outside her room as patient using bathroom. Spoke with her approximately 15-20 minutes review of : Palliative care role, team members, reason for consult Current pending diagnostics, rationale Current conditions, treatments in place, consultations in place, consultations pending. Review of underlying multiple myeloma is pathology for multiple issues;, further explore that patient likely continue to experience sequelae if malignancy continues to progress and is untreated or not in remission. Patient and/or family understanding of current medical conditions prognosis treatment options and treatments Discussed with primary nurse, discussed at length with medical attending Dr. Sanchez. She is amenable to palliative making adjustments to pain regimen as indicated. We discussed oral regimen monitoring over 24 hours and then the addition of possible long-acting such as fentanyl patch etc. Patient and primary complaint are the patient having pain relief for a couple hours following administration but then immediately having pain again after a few hours. Oncology evaluation is still pending, patient and are amenable to considering radiation therapy, this may be an option pending oncology evaluation , and MRI findings. Possible course of XRT treatment may improve patient pain, quality of life. also asked about possible steroid injections, though I am not certain that this is an option at this time. Met with patient and again at length at bedside. Review with him current and pending diagnostics, pending consultations. Review with him renal function results today. Review with him pain medication requirements, as well as opiate use and balancing benefits of pain relief versus sedation, and less ability to participate in activities of daily living. Also reviewed that the strongest pain medication patient has used in the past prior to this and [facility] acute hospitalization was Elmer 5 I am reluctant to recommend significant increase as he is still somewhat opiate larry. Recommend at this point increasing the amount of hydrocodone he receives, monitoring requirements and effectiveness over the next 24 hours. He indicates that the Elmer does seem to help initially but seems to wear off after about an hour. Further explore the pathology of his pain likely has physical/malignant etiology and we may not be able to completely relieve his pain. He is amenable to trying slow up titration and monitoring effectiveness. He is reluctant to introduce more or stronger medications. Discussed all with primary nurse. . Advance Directives Living Will: Completed, but not made available Health Care Surrogate: Completed, but not made available Objective Vital Signs Date Time Temp Pulse Resp B/P (MAP) Pulse Ox O2 Delivery O2 Flow Rate FiO2 10/02/17 08:00 97.5 82 17 139/85 (103) 95 10/02/17 04:00 98.0 85 18 134/86 (102) 95 10/02/17 00:00 66 10/02/17 00:00 97.4 82 18 132/88 (103) 96 10/01/17 20:00 72 10/01/17 20:00 97.3 88 20 146/87 (106) 97 10/01/17 16:00 97.7 81 17 122/72 (89) 97 10/01/17 12:00 97.5 71 19 137/84 (101) 96 Intake & Output 10/02/17 10/02/17 07:00 19:00 Intake Total 1000 ml Output Total 1800 ml Balance -800 ml IV Total 1000 ml Output Urine Total 1800 ml Physical Exam CONSTITUTIONAL/GENERAL: This is a thin, frail, chronically ill-appearing man. TUBES/LINES/DRAINS: Peripheral IV bilat upper extremities. SKIN: No jaundice, rashes, or lesions. small ecchymosis left wrist area . No wounds seen anteriorly. Skin warm/dry. Pale. CARDIOVASCULAR: Regular rate and rhythm without murmur. No JVD. Peripheral pulses symmetric. RESPIRATORY/CHEST: Symmetric, unlabored respirations. Lungs are clear on room air. Breath sounds equal bilaterally. GASTROINTESTINAL: Abdomen soft, non-tender, nondistended. No hepato-splenomegaly , or palpable masses. No guarding. Bowel sounds present. MUSCULOSKELETAL: Extremities without clubbing, cyanosis, or edema. No joint tenderness or effusion noted. No calf tenderness. No mottling or clubbing. NEUROLOGICAL: Awake and alert, oriented 3 though forgetful at times. Appears to have reasonable insight and judgment. Motor and sensory grossly within normal limits. Follows commands. Cognitively sharp. Moves all extremities. PSYCHIATRIC: No obvious anxiety/depression. no apparent hallucinations or other psychotic thought process. Diagnostic Tests Laboratory Laboratory Tests Test 10/01/17 00:51 10/02/17 04:50 White Blood Count 4.5 TH/MM3 (4.0-11.0) Red Blood Count 2.32 MIL/MM3 (4.50-5.90) Hemoglobin 7.3 GM/DL (13.0-17.0) Hematocrit 20.9 % (39.0-51.0) Mean Corpuscular Volume 90.0 FL (80.0-100.0) Mean Corpuscular Hemoglobin 31.4 PG (27.0-34.0) Mean Corpuscular Hemoglobin Concent 34.9 % (32.0-36.0) Red Cell Distribution Width 18.3 % (11.6-17.2) Platelet Count 60 TH/MM3 (150-450) Mean Platelet Volume 7.1 FL (7.0-11.0) CBC Comment AUTO DIFF Differential Total Cells Counted 100 Neutrophils % (Manual) 29 % (16-70) Band Neutrophils % 4 % (0-6) Lymphocytes % 43 % (9-44) Monocytes % 7 % (0-8) Eosinophils % 2 % (0-4) Neutrophils # (Manual) 1.6 TH/MM3 (1.8-7.7) Metamyelocytes 2 % (0-1) Nucleated Red Blood Cells 2 /100 WBC (0-0) Differential Comment FINAL DIFF MANUAL Atypical Lymphocytes 9 % (0-0) Blastocytes 1 % (0-0) Plasma Cells 3 % (0-0) Platelet Estimate LOW (NORMAL) Platelet Morphology Comment NORMAL (NORMAL) Basophilic Stippling FAINT (NORMAL) Rouleau PRESENT (NORMAL) Blood Urea Nitrogen 56 MG/DL (7-18) 48 MG/DL (7-18) Creatinine 4.70 MG/DL (0.60-1.30) 3.87 MG/DL (0.60-1.30) Random Glucose 89 MG/DL (74-106) 81 MG/DL (74-106) Total Protein 12.8 GM/DL (6.4-8.2) 12.5 GM/DL (6.4-8.2) Albumin 1.8 GM/DL (3.4-5.0) 1.8 GM/DL (3.4-5.0) Calcium Level 11.8 MG/DL (8.5-10.1) 10.7 MG/DL (8.5-10.1) Alkaline Phosphatase 43 U/L (45-117) Aspartate Amino Transf (AST/SGOT) 17 U/L (15-37) Alanine Aminotransferase (ALT/SGPT) 16 U/L (12-78) Total Bilirubin 0.4 MG/DL (0.2-1.0) Sodium Level 139 MEQ/L (136-145) 141 MEQ/L (136-145) Potassium Level 4.0 MEQ/L (3.5-5.1) 4.1 MEQ/L (3.5-5.1) Chloride Level 104 MEQ/L (98-107) 108 MEQ/L (98-107) Carbon Dioxide Level 21.6 MEQ/L (21.0-32.0) 19.8 MEQ/L (21.0-32.0) Anion Gap 13 MEQ/L (5-15) 13 MEQ/L (5-15) Estimat Glomerular Filtration Rate 13 ML/MIN (>89) 16 ML/MIN (>89) Protein Corrected Calcium 8.7 MG/DL (8.5-10.1) 8.0 MG/DL (8.5-10.1) Phosphorus Level 4.4 MG/DL (2.5-4.9) Iron Level 126 MCG/DL (65-175) Total Iron Binding Capacity 134 MCG/DL (250-450) Percent Iron Saturation 93.8 % (20-50) 25-Hydroxy Vitamin D Total GREATER THAN 150.0 ng/ML Parathyroid Hormone (Intact) 17.5 PG/ML (12.4-76.8) Immunoglobulin G Total 161 MG/DL (660-1640) Immunoglobulin M LESS THAN 8 MG/DL (40-247) Immunoglobulin [place]/Lambda Ratio 0.02 (1.57-3.93) Complement C3 64 MG/DL (90-180) Complement C4 17 MG/DL (10-40) [place] Light Chain Analysis 37 MG/DL (170-370) Lambda Light Chain Analysis 1750 MG/DL (90-210) Hepatitis B Surface Antigen NONREACTIVE (NONREACTIVE) Hepatitis C IgG Antibody NONREACTIVE (NONREACTIVE) Result Diagram: 10/01/17 0051 10/02/17 8442 Assessment and Plan Disease Oriented Problem List: (1) Hypercalcemia (2) Acute renal failure (3) Anemia (4) Multiple myeloma (5) Compression fx, lumbar spine (6) Atrial fibrillation status post cardioversion (7) Back pain (8) Right shoulder pain Comment: hx staph infection . Symptom Scale: (1) Pain 0-10 Scale: 8 Pertinent Non-Medical Issues Psychosocial: Spiritual: Legal:Patient currently alert and oriented, appears to have insight and able to make his own decisions. He reports his is designated healthcare surrogate. Request them to bring copies of these documents. In absence of documentation his would be appropriate legal proxy per [place] statutes. Ethical issues impacting care:none identified . Important Contacts Tammie Ambrosio [phone] . Prognosis This patient was transferred from [facility] here for further evaluation of acute renal failure. He has underlying history of multiple myeloma, diagnosed in June of this year. He has not undergone any aggressive treatment for this. Has been treating holistically. He has most recently been primarily bedbound, with significant pain and weakness to his back. He appears to have some recent compression fractures to L spine, likely secondary to osteopenia, underlying multiple myeloma. He is at risk for ongoing complications and continued decline secondary to progression of disease process. He is unlikely to achieve disease remission without aggressive oncology intervention. . Code Status: Full Code Plan Legal decision maker:Patient currently alert and oriented, appears to have insight and able to make his own decisions. He reports his is designated healthcare surrogate. Request them to bring copies of these documents. In absence of documentation his would be appropriate legal proxy per [place] statutes. Goals: Met initially with patient at length at bedside. He appears to have reasonable understanding of his disease process and possible prognosis. He indicates he is done much research online and is elected to not undergo chemo or radiation therapies due to concern for severe side effects. He has been primarily treating this holistically-with oral vitamin and herbal supplements. Follow-up meeting today with patient and . They are amenable to some possible aggressive interventions if indicated such as radiation therapy if this may provide quality of life or pain benefits. He is also amenable to neurosurgical consultation if findings indicative of this on MRI today. they are amenable to slow and cautious adjustments to pain regimen, patient and desire better pain control. ---> He is open to oncology consultation here, oncology consultation pending ---> He indicates he is amenable to proceeding with MRI if he can have additional IV dosing of pain medication before procedure. One-time dose hydromorphone has been added MRI planned for this afternoon ---> May be helpful to obtain medical records from his primary provider/and/or oncology to establish baseline (in [facility] he indicates this is Dr Cait Jonas-- [facility], though I cannot find a provider under this name ) CODE STATUS: full code SYMPTOMS: --Pain-patient indicates ongoing back pain for the past month or so worsened significantly in the past several days to week such that he has been primarily bedbound. Recent imaging per [facility] facility showed old compression fracture, osteopenia, lumbar spine with possible new recent compression fracture L1 and L3. Patient also with stenosis at L4, 5 and L5, S1. , In agreement now to proceed with MRI, with one-time additional dose of pain medication to make this procedure more comfortable/tolerable. He indicates that Elmer ordered here in the hospital does not really seem to help the pain very much; discussed at length w medical attending . She is amenable to palliative making adjustments to pain regimen. At this time patient is still fairly opiate larry the hospital his dose of pain medication he has been on his Elmer 5, aside from some IV 1 injections during acute hospitalization recently. He indicates initially Elmer 5 is providing some relief though it seems to wear off within about an hour. He may at some point benefit from long acting such as fentanyl patch etc. however at this point he is not requiring large doses of prn, so would stick with more hacaah-ywu-[id number]/as needed dosing versus addition of a stronger long-acting. Patient also reluctant to add/dramatically change regimens. He is amenable to increasing dose of current medication and monitoring of effectiveness over the next 24 hours. --Weight loss/poor appetite -likely secondary to disease process. He indicates that he lost around 30 pounds at initial diagnosis with myeloma around June, and he may have lost another 30 pounds since then due to "eating healthier ". He indicates that generally he just does not feel hungry, and less it is a food item that he really likes. May benefit from an appetite stimulant though he may be reluctant to take as he prefers holistic treatments and generally does not welcome chemical substances. Palliative care will continue to follow during hospital course as condition evolves, to assist patient/decision-maker with understanding of medical conditions, weighing benefits/burdens of treatment options, for clarification of goals of treatment. Additionally will assist with any symptoms of palliative concern . Time Spent Total Floor Time (mins): 45 (Chart review, discussions with nursing, discussions with medical attending, lengthy discussions with patient and ) Attestation To help prompt me to consider important information that might be impacting today's encounter and assessment, information from prior notes written by myself or my colleagues may have been "brought forward" into today's note. My signature on this note, however, is an attestation that I personally performed the exam, history, and/or decision-making noted today, and, unless otherwise indicated, the interactions with patient, family, and staff as well as the review of records all occurred today. I also attest that the listed assessment and stated plan reflect my best clinical judgment today based on the combination of historical information, prior notes, and today's exam/ interactions. When time spent is documented, it refers only to time spent today by the signer, or if indicated, combined time spent today by collaborating physician/nurse practitioner. Flora Car October 02, 2017 10:44
[2017-10-02] MEDS: ACETAMINOPHEN/HYDROcodone 325 MG/5 MG TAB PO PRN (10:56)
[2017-10-02] MEDS ORDERED: HYDROmorphone HCL PF 0.5 MG/0.5 ML SYRINGE IV PUSH ONE (11:30)
[2017-10-02] MEDS ORDERED: ACETAMINOPHEN/HYDROcodone 325 MG/5 MG TAB PO ONE (12:00)
--- NOTE | 2017-10-02 13:27 | RADRPT ---
EXAM DATE: 10/02/2017 1:12 PM EDT AGE/SEX: 52 years / Male INDICATIONS: Weakness. CLINICAL DATA: This is the patient's subsequent encounter. Patient reports that signs and symptoms h ave been present for 2 days and indicates a pain score of 0/10. MEDICAL/SURGICAL HISTORY: . Multiple Myeloma. None. COMPARISON: No prior [facility] exams available for comparison. TECHNIQUE: Multiplanar, multisequence MRI of the thoracic spine was performed. FINDINGS: Sagittal T1 and T2-weighted images demonstrate adequate alignment of the thoracic vertebral bodies. T here are old compression fractures involving T12, L1 and possibly the superior endplate of L2. There is no significant bony retropulsion associated with the fractures. There is desiccation of the discs throughout the thoracic spine. No abnormal signal is seen within the cord. Axial imaging is provided. These demonstrate small broad-based disc bulges at T6/T7, T7/T8, T8/T9, T9 /T10 and T10/T11. These just abuts the ventral thecal sac. There is no significant neural foraminal s tenosis or spinal stenosis identified. CONCLUSION: 1. Old compression fractures of T12 and L1. 2. No abnormal signal identified within the thoracic cord. 3. Degenerated discs throughout the mid and lower thoracic spine with small broad-based disc bulges but no significant neural foraminal stenosis or spinal stenosis. Electronically signed by: Emery Villegas MD 10/02/2017 1:26 PM EDT
--- NOTE | 2017-10-02 14:12 | RADRPT ---
EXAM DATE: 10/02/2017 1:23 PM EDT AGE/SEX: 52 years / Male INDICATIONS: Weakness. Back pain. CLINICAL DATA: This is the patient's subsequent encounter. Patient reports that signs and symptoms h ave been present for 2 days and indicates a pain score of 0/10. MEDICAL/SURGICAL HISTORY: . Multiple Myeloma. None. COMPARISON: No prior [facility] exams available for comparison. TECHNIQUE: Multiplanar, multisequence MRI of the lumbar spine was performed without contrast. Patie nt was scanned in a sitting position; neutral, flexion, and extension scans were performed in the sa gittal plane. FINDINGS: Vertebra: There is a moderate compression fracture deformity of the T12 vertebral body with invagina tion superior endplate. There are milder compression fractures involving the L1, L2, L3 and L4 verteb ral bodies with invagination of the superior endplates. There is no acute marrow edema in any of thes e regions. There is discogenic edema in the endplates at the L5-S1 level. Discs: There is mild heterogeneity of the disks. There is disc space narrowing at the L5-S1 level. An anterior extradural defect noted on the sagittal images at the L2-3 level. There is abnormal marro w signal involving the T12 and L1 vertebra and posterior elements as well as portions of the sacrum w ith increased signal on the T2-weighted sequences. Conus: Normal level and configuration. T12-L1: The thecal sac has a normal diameter. No evidence of disc bulge or protrusion. The neural foramina are patent bilaterally. L1-L2: The thecal sac has a normal diameter. No evidence of disc bulge or protrusion. The neural foramina are patent bilaterally. L2-L3: There is a moderate-sized posterior central to right parasagittal protrusion measuring up to approximately 8 mm across the base and 4 to 5 mm in AP diameter with mass effect on the right side o f the thecal sac. The neural foramina are patent. There are mild degenerative changes involving the f acet joints. L3-L4: Mild annular disc bulge with minimal flattening of the anterior thecal sac and no focal prot rusion. Neural foramina are patent. There are mild degenerative changes involving the facet joints. L4-L5: Moderate disc bulge with flattening of the anterior thecal sac and narrowing of the neural f oramina. There is no mass effect on the exiting nerve roots. There are degenerative changes involving the facet joints bilaterally. There is borderline central canal stenosis. L5-S1: Mild disc bulge with no mass effect on the thecal sac this meets the transiting S1 nerve pepe ts with no definite mass effect. There are mild degenerative changes involving the facet joints. CONCLUSION: 1. Moderate size posterior central to right parasagittal protrusion at the L2-3 level with mass effe ct on the thecal sac. 2. Disc bulges at the L3-4 through L5-S1 levels. 3. Multiple compression fracture deformities which appear chronic. 4. Abnormal marrow signal involving the T12 and L1 vertebral bodies as well as portions of the sacru m. This is of concern for the patient's known myeloma. 5. Degenerative disc and degenerative joint changes. Electronically signed by: Brian Vargas MD 10/02/2017 2:10 PM EDT
[2017-10-02] MEDS: ACETAMINOPHEN/HYDROcodone 325 MG/10 MG TAB PO PRN (17:51)
--- NOTE | 2017-10-02 18:31 | HHI.NPPN ---
Subjective History of Present Illness The patient is a 52 yo [place] male who was transported to this facility from [facility] in [place]. He has a hx of multiple myeloma that was diagnosed in Jun 2017, but does not have an oncologist as he has opted to pursue only holistic medicine in regards to his MM treatment. Says that he follows rather closely with his PCP, Dr. Echeverria, in [place]. Reports that he has been having significant back and hip pain for at least the past month and has been overall bedridden because of this---this is ultimately why he sought care at [facility]. We have been consulted for evaluation of renal failure. States that he has been told that his renal functions were declined in the past, but "improved with hydration." There are no other labs available to me for review at time of interview. His admitting SCr is 4.70 with eGFR of 13 He has a significantly elevated serum calcium of 11.8 Albumin 1.8. No urinalysis has been performed. He does report a significant use of OTC NSAIDs to help combat his back pain. He is open to general treatment, but does not want any chemotherapy or radiation. Interval History Patient with no verbal complaints today. On questioning the patient indicated to me that he was taking 20,000 units of vitamin D a day which is part of his holistic treatment. Objective Data Data 10/02/17 10/03/17 19:00 07:00 Intake Total 525 ml Output Total 400 ml Balance 125 ml Intake Oral 525 ml Output Urine Total 400 ml # Bowel Movements 1 Vital Signs Date Time Temp Pulse Resp B/P (MAP) Pulse Ox O2 Delivery O2 Flow Rate FiO2 10/02/17 16:00 98.0 83 17 117/75 (89) 95 10/02/17 12:00 97.8 74 19 129/79 (96) 95 10/02/17 09:00 73 10/02/17 08:00 97.5 82 17 139/85 (103) 95 10/02/17 04:00 98.0 85 18 134/86 (102) 95 10/02/17 00:00 66 10/02/17 00:00 97.4 82 18 132/88 (103) 96 10/01/17 20:00 72 10/01/17 20:00 97.3 88 20 146/87 (106) 97 -: 10/01/17 0051 10/02/17 0450 Physical Exam General Appearance: No Acute Distress, Comfortable Eyes Eye Exam: Sclera White Neck Neck Exam: Trachea Midline Pulmonary Resp Exam: Clear Bilaterally, Breath Sounds Equal Cardiology CV Exam: Regular, Normal Sinus Rhythm Gastrointestinal/Abdomen GI Exam: Soft, Non-Tender Integumentary Skin Exam: Clear, Warm Extremeties Extremities Exam: No Edema Assessment/Plan Discussed Condition With: Patient Problem List: (1) Acute renal failure ICD Codes: N17.9 - Acute kidney failure, unspecified Plan: His acute renal failure is likely multifactorial: NSAID exposure, dehydration related to poor oral intake worsened by hypercalcemia, vasospasm related to hypercalcemia, probable potential for myeloma involvement of the kidneys. His serum light chain level is about 1500 which would be consistent with the possibility of light chain cast nephropathy. Await urine immunofixation to determine if patient predominantly has light chains in the urine. Continue on on Calcitonin to help correct hypercalcemia until tomorrow. A long discussion again with the patient regarding his renal impairment and its probable etiology. Hopefully renal functions will improve with correction of hypercalcemia and hydration, but this remains to be seen. If he does have MM involvement in the kidneys, was advised that treatment of multiple myeloma is definitively the treatment of his renal disease. Await oncology opinion. Patient does not seem to be receptive to medical therapy per my discussion with him today however. Medications should be adjusted for the patient's renal decline. Avoid nephrotoxic medications including iodinated contrast dyes and NSAIDs. (2) Hypercalcemia ICD Codes: E83.52 - Hypercalcemia Plan: I advised the patient that aggressive hydration as well as calcitonin will temporarily improve his calcium level but definitive treatment of his myeloma is recommended. I also indicated to him that his excessive intake of vitamin D may also have contributed to his high calcium level and he should discontinue megadoses of vitamin D. Would recommend he wishes to take a supplement only 1000 units daily to 2000 most but in the interim avoid vitamin D supplementation. (3) Multiple myeloma ICD Codes: C90.00 - Multiple myeloma not having achieved remission Status: Chronic Plan: Agreeable to oncology opinion, Will defer to primary to order (4) Anemia ICD Codes: D64.9 - Anemia, unspecified Plan: Elevated iron levels. Await oncology opinion. 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 Patient was taking 20,000 units daily. He has been counseled regarding the need to avoid excessive supplementation. Eliseo Titus MD October 02, 2017 18:31
--- NOTE | 2017-10-02 19:54 | RADRPT ---
EXAM DATE: 10/02/2017 7:48 PM EDT AGE/SEX: 52 years / Male INDICATIONS: Elevated labs. CLINICAL DATA: This is the patient's initial encounter. Patient reports that signs and symptoms have been present for 1 day and indicates a pain score of 0/10. MEDICAL/SURGICAL HISTORY: . Multiple myeloma. Muscle stiffness. Back pain. . Blood transfusion s. COMPARISON: . No external comparison. MEASUREMENTS: Right Kidney:__10.8 x 5.0 x 5.7 cm cm Left Kidney:__12.2 x 4.4 x 5.1 cm cm FINDINGS: Right Kidney: The kidney is normal in size and shape. There is diffuse increase in echogenicity as we ll as cortical thinning. No hydronephrosis. No mass. Left Kidney: The kidney is normal in size and shape. There is diffuse increase in echogenicity as wel l as cortical thinning. No hydronephrosis or mass. A 1.6 cm cyst is noted exophytic from the mid pole . Bladder: Within normal limits given the degree of distension. CONCLUSION: 1. Sonographic findings consistent with underlying medical renal disease. 2. No obstruction. 3. Left renal cyst. Electronically signed by: Carlos Sosa MD 10/02/2017 7:52 PM EDT
[2017-10-03] VITALS (9 sets, daily range): BP systolic 114–133; BP diastolic 63–75; PULSE 64–84; RESP 18–20; TEMP 97.3–98; O2SAT 96–99
[2017-10-03] MEDS: SODIUM CHLOR 0.9% 1000 ML INJ 1,000 ML IV SCH ×3 (05:51→12:55)
[2017-10-03] MEDS: CALCITONIN SALMON INJ 400 UNITS/2 ML VIAL SQ SCH (05:52)
[2017-10-03] MEDS: SODIUM CHLORIDE 0.9% FLUSH 10 ML FLUSH IV FLUSH SCH ×2 (07:18→20:39)
[2017-10-03 08:14] LABS: ALBUMIN 1.7 GM/DL (3.4-5.0); CALCIUM 9.8 MG/DL (8.5-10.1); CALCIUM-PROTEIN CORRECTED 7.7 MG/DL (8.5-10.1); CREATININE 3.13 MG/DL (0.60-1.30); PHOSPHORUS 3.2 MG/DL (2.5-4.9); TOTAL PROTEIN 11.6 GM/DL (6.4-8.2)
[2017-10-03] MEDS: METOPROLOL TARTRATE 50 MG TAB PO SCH ×2 (08:17→20:39)
--- NOTE | 2017-10-03 08:18 | HHI.PR ---
Subjective Remarks The patient is seen in the bed says he cannot walk much. Back pain is better controlled. He feels tired. No chest pain or shortness of breath. No nausea or vomiting. Noted with low hemoglobin. We will transfuse discussed with the patient agrees with the plan. Objective Vitals Vital Signs Date Time Temp Pulse Resp B/P (MAP) Pulse Ox O2 Delivery O2 Flow Rate FiO2 10/03/17 04:00 97.9 70 20 114/68 (83) 96 10/03/17 00:00 98.0 73 20 133/75 (94) 96 10/02/17 20:00 98.3 70 20 124/76 (92) 95 10/02/17 16:00 98.0 83 17 117/75 (89) 95 10/02/17 12:00 97.8 74 19 129/79 (96) 95 10/02/17 09:00 73 I/O 10/02/17 10/02/17 10/02/17 10/03/17 10/03/17 10/03/17 07:00 15:00 23:00 07:00 15:00 23:00 Intake Total 1000 ml 2025 ml 1000 ml Output Total 1800 ml 400 ml 1700 ml Balance -800 ml 1625 ml -700 ml Intake Oral 525 ml IV Total 1000 ml 1500 ml 1000 ml Output Urine Total 1800 ml 400 ml 1700 ml # Bowel Movements 1 Result Diagram: 10/01/17 0051 10/03/17 0558 Imaging Last Impressions Thoracic Spine MRI 10/02/17 0000 Signed Impressions: CONCLUSION: 1. Old compression fractures of T12 and L1. 2. No abnormal signal identified within the thoracic cord. 3. Degenerated discs throughout the mid and lower thoracic spine with small br oad-based disc bulges but no significant neural foraminal stenosis or spinal st enosis. Renal Ultrasound 10/02/17 0000 Signed Impressions: CONCLUSION: 1. Sonographic findings consistent with underlying medical renal disease. 2. No obstruction. 3. Left renal cyst. Lumbar Spine MRI 10/02/17 0000 Signed Impressions: CONCLUSION: 1. Moderate size posterior central to right parasagittal protrusion at the L2- 3 level with mass effect on the thecal sac. 2. Disc bulges at the L3-4 through L5-S1 levels. 3. Multiple compression fracture deformities which appear chronic. 4. Abnormal marrow signal involving the T12 and L1 vertebral bodies as well as portions of the sacrum. This is of concern for the patient's known myeloma. 5. Degenerative disc and degenerative joint changes. Objective Remarks GENERAL: This is a well-nourished, well-developed patient, in no apparent distress. CARDIOVASCULAR: Regular rate and rhythm without murmurs, gallops, or rubs. RESPIRATORY: Clear to auscultation. Breath sounds equal bilaterally. No wheezes , rales, or rhonchi. GASTROINTESTINAL: Abdomen soft, non-tender, nondistended. No guarding. MUSCULOSKELETAL: Extremities without clubbing, cyanosis. NEUROLOGICAL: Awake and alert. Normal speech. A/P Problem List: (1) Acute renal failure ICD Code: N17.9 - Acute kidney failure, unspecified (2) Multiple myeloma ICD Code: C90.00 - Multiple myeloma not having achieved remission Status: Chronic Assessment and Plan Mr. Ambrosio is a 52 y/o male desiring only holistic treatment of multiple myeloma diagnosed in June 2017 with history of atrial fibrillation s/p cardioversion x 3 - not on anticoagulation, chronic back pain, and right shoulder staph infection who presented to the ER on 09/30/[address] [facility] for evaluation of chronic back pain and inability to ambulate. He was transferred to [facility] because he's noted to be in acute renal failure at [facility] and they had no workforce consultant on duty for the next 2 days. Acute Renal Failure BUN 56, creatinine 4.70, and eGFR 13 on admission IVF with NS at 84 cc/hr recheck labs in a.m. and follow results consult nephrology - appreciate assistance avoid nephrotoxins Osteopenia, compression fractures CT thoracic and lumbar spine from [facility] show thoracic spine: "old compression fx involving t12 without significant change from MRI 07/20. Extensive area f osteopenia involving multiple thoracici vertebral bodies likely reflective of the patient's known multiple myeloma". Lumbar spine: "recent compression fx involving L1 and L3 level new since MRI performed 07/20. No retropulsion. Central disc protrusion at the L2 - L3 level resulting in central stenosis with borderline central stenosis at L4 - L5 and L5 - s1 levels." Check left hip x-ray due to patient c/o pain check MRI thoracic and lumbar spine for further evaluation reviewed Consult neurosurgery. No indication for surgery at this time might consider injections with steroids can be done as outpatient. Clear patient for discharge. [place] 10/325 mg q4h PRN pain > 4; Robaxin 750 mg q8h prn muscle spasm Multiple Myeloma s/p two units of PRBCs and 1 unit of platelets at [facility] recheck CBC in a.m. - transfuse as needed patient will discuss with whether or not they want a second oncology opinion Anemia likely of chronic disease. Type and screen. Transfuse 2 units of blood. Repeat H&H. Transfuse if hemoglobin less than 7 or if the patient is symptomatic. DVT prophylaxis - SCDs/TEDs - chemoprophylaxis contraindicated by severe anemia Discussed Condition With Patient, nurse, family at bedside. Discussed with Flora from palliative care. Discussed with case management. DC plan: The patient and family decided they want to go back to [facility]. We will have physical therapy for evaluation and recommendations. Clover Sanchez MD Oct 03, 2017 08:18
[2017-10-03] MEDS: ACETAMINOPHEN/HYDROcodone 325 MG/10 MG TAB PO PRN ×3 (09:28→19:20)
[2017-10-03 10:43] LABS: IMMUNOGLOBULIN A GREATER THAN 7000 MG/DL (133-294)
--- NOTE | 2017-10-03 11:49 | MB ---
cc: Juliocesar KAMARA DATE: 10/03/2017 CHIEF COMPLAINT: Back pain. HISTORY OF PRESENT ILLNESS: This is a 52-year-old male patient with a history of multiple myeloma diagnosed in 06/2017. Patient reports that starting in July this year, he developed back pain after twisting. The pain apparently improved, 2 weeks later it regressed to its previous level and he was seen in physical therapy, who attempted to turn him and his pain increased again. Since then, he reports that he has had significant back pain with inability to sit or stand for a prolonged period of time. He was recently seen at [facility] ER because of this chronic back pain and was transferred to this facility because of acute renal failure. The patient reports that the pain is located in the midline, especially with radiation to the sides. There seems to have some radiation to the hip area, which is intermittent. He complains of inability to sit or to stand. He goes to the bathroom with assistance. He denies any numbness or pain in the lower extremities. Denies any difficulty with bowel movements or urination. PAST MEDICAL HISTORY: Remarkable for a history of atrial fibrillation, he is not on anticoagulation. Multiple myeloma, right shoulder staph infection and now acute renal failure. PAST SURGICAL HISTORY: Unremarkable. MEDICATIONS: 1. Metoprolol. 2. Methocarbamol. 3. Vitamin D. 4. Coenzyme Q. 5. Vitamin B1. 6. Vitamin B12. 7. Burely leaf. 8. Curcumin Budwig. 9. Beta Glucan powder. ALLERGIES: HE HAS AN ALLERGY TO ASPIRIN AND CLINDAMYCIN. FAMILY HISTORY: Reveals mother with diabetes mellitus and a father with heart difficulties. SOCIAL HISTORY: Reveals that he has never smoked. Drinks about 2-3 times per month and denies any illicit drugs. PHYSICAL EXAMINATION: VITAL SIGNS: Blood pressure 145/87, respirations 17, pulse of 85, temperature of 97.6 and pulse oximetry of 95. GENERAL: The patient is lying in bed, appears to be well-developed, well-nourished in no significant distress. HEENT: Unremarkable. NECK: Supple with good carotid pulses bilaterally. CHEST: Symmetric. LUNGS: Clear. HEART: Shows a regular rhythm with normal heart sounds. ABDOMEN: Soft and nontender. EXTREMITIES: Appeared clear. Back: Tenderness at the midline at mid lower back NEUROLOGIC: The patient is alert and awake. He follows commands well. He is conversant. He is oriented x 3. He has a fluent speech. Affect appears normal. Cranial nerves 2-12 appear intact. Motor exam is 5+/5 including the lower extremities. He is right-handed. Sensory exam is intact to touch. Deep tendon reflexes are 2+ at the knee jerks, 1+ at the ankle jerks, 1+ in the upper extremities. LABORATORY DATA: Review of an MRI of the lumbar spine shows evidence of compression fractures of T12 and L1. There also appears to be some infiltration of the bone marrow of the vertebral bodies at various levels. There is somewhat of a retrolisthesis at the level of L5-S1 with degenerative changes and there appears to be a mild to moderate protrusion of the disk at the level of L2-3 somewhat central. IMPRESSION: Multifactorial back pain with some intermittent radiculopathy, acute renal failure and multiple myeloma and atrial fibrillation. RECOMMENDATIONS: 1. At this point, a long discussion was undertaken with the patient and his about the options for care at this point, which include conservative management with physical therapy and progressive ambulation. 2. Consider an epidural injection into the spine to try to alleviate his pain. Of course, treatment of his multiple myeloma and ultimately surgical intervention at the level where the herniated disk is present if he does not respond to conservative measures. No surgery until renal status addressed. It had also been explained to the patient that even with surgery not all of his pain may be controlled. Juliocesar NEWMAN/DINORAH , 11:03 AM , 11:48 AM HUSAM
--- NOTE | 2017-10-03 13:22 | MB ---
cc: Nuris Valdes MD DATE: 10/03/2017 CHIEF COMPLAINT: 1. Multiple myeloma. 2. Anemia. 3. Acute kidney injury. 4. Hypercalcemia. HISTORY OF PRESENT ILLNESS: Mr. Ambrosio is a 52-year-old gentleman with a history of atrial fibrillation, status post cardioversion x 3, not currently on anticoagulation. Multiple myeloma diagnosed in early 2017, chronic back pain and a history of a staph infection of his right shoulder, who was admitted to the hospital on 10/01/2017 as a transfer from [facility] for further evaluation by our nephrology team for his acute kidney injury. He presented to the [facility] ED on 09/30/2017 for evaluation of chronic back pain and inability to ambulate. While there, laboratory studies revealed he was in acute renal failure and he was transferred to our facility to be treated by our nephrology team. He has a known history of multiple myeloma which was diagnosed in 06/2017. Unfortunately, he has not received any standard of care treatment due to his desire to pursue alternative therapies and holistic medicine. In the past, he has been transfused 2 units of packed red blood cells and 1 unit of platelets at an outside facility. Prior to this hospitalization, he had progressive worsening back pain with increasing weakness. He has currently been consulted on by the palliative care team, the nephrology team and the neurosurgery team. Thoracic spine MRI showed old compression fractures of T12 and L1. No abnormal signal identified within the thoracic cord. Degenerative disc throughout the mid and lower thoracic spine with small broad-based disc bulges and no significant neural foraminal stenosis or spinal stenosis. Lumbar spine MRI revealed moderate sized posterior central right parasagittal protrusion at the L2-L3 level with mass affect on the thecal sac, disc bulge is present L3-L4 through L5-S1 levels, multiple compression fracture deformities which appear chronic and normal marrow signal involving the T12 and L1 vertebral bodies, as well as portions of the sacrum. This is of concern for the patient's myeloma, degenerative disc disease and degenerative joint changes. LABORATORY STUDIES: White blood cell count 4.5, hemoglobin 7.3, platelet count is 60,000 with differential that reveals one blast cell, 3 plasma cells, metamyelocytes nucleated red blood cells and neutrophils. IgG is low at 161, IgA is elevated at greater than 7000. IgM is low at less than 8. [place] to lambda ratio is low at 0.02, free kappa, free lambda and free kappa/lambda ratio results are pending at this time. Immunofixation and SPEP are pending at this time. Chemistry studies with a creatinine of 3.13. This was previously 4.7 on admission. Total protein is elevated at 11.6. Albumin is low at 1.7 and calcium is also elevated at 9.8, previously 11.8 on admission. PAST MEDICAL HISTORY: 1. Atrial fibrillation. 2. Multiple myeloma. 3. Chronic back pain. PAST SURGICAL HISTORY: None. FAMILY HISTORY: Mother with a history of diabetes. Father with a history of heart problems. No known family history of myeloma. SOCIAL HISTORY: The patient denies tobacco, alcohol, and illegal drug use. He reports prior to his myeloma diagnosis, he consumed approximately 3 mixed drinks a month. He has a good support system with his . ROS as above in HPI all others negative PHYSICAL EXAMINATION: VITAL SIGNS: Temperature 97.3, pulse 68, respiratory rate 18, blood pressure 127/63, and pulse oximetry is 96% on room air. GENERAL: Well-developed, well-nourished man in no distress. HEENT: Head is normocephalic, atraumatic. Eyes, PERRLA, EOMI. No scleral icterus. NECK: Supple. No palpable lymphadenopathy. CARDIOVASCULAR: Regular rate and rhythm. No murmurs. RESPIRATORY: Clear to auscultation bilaterally. ABDOMEN: Soft and nontender. Normal bowel sounds. Extremities with no edema. NEUROLOGIC: Grossly nonfocal. PSYCHIATRIC: Appropriate mood and affect. ASSESSMENT AND PLAN: 1. IgA lambda light chain multiple myeloma diagnosed in 06/2017 and the patient declined standard of care treatment and has been pursuing holistic and alternative therapies. He is symptomatic with anemia, bony pain, renal disease, and hypercalcemia. The patient has previously seen an oncologist in [place] and declined conventional therapy. I do not know the FISH or cytogenetics from his bone marrow biopsy. I do not have any results from his outside oncologist or medical team. The patient and his report that they had one visit with an oncologist in the [place] area and have since then been following up with their primary post anesthesia care unit nurse. Discussed that the standard treatment for multiple myeloma, especially in such a young man would be aggressive treatment with chemotherapy. If the patient achieves a good response, would then move on to have an allotransplant. Discussed that with conventional chemotherapy followed by an autotransplant, he would have superior survival and that treatment related mortality in the modern area with autotransplant is quite low. Discussed that with involvement of his kidneys, bones, and bone marrow that he does have significant disease burden and it would behoove him to proceed with therapy. The patient declines any conventional therapy including steroid treatment. He reports that his main goal is to have his back pain go away and ideally, he would be able to return to work. He reports that he is quite distustful of modern medicine and wishes to be able to control his myeloma with supplements and holistic medicine alone. I had an honest discussion with the patient that I felt that if he were to continue to avoid treatment with chemotherapy and to proceed down the path that he is currently on, that there is a very good chance that we would not be able to ever get control of his disease and he could suffer significant morbidity and mortality including permanent renal damage necessitating dialysis, bony pain, bony fractures, worsening anemia and even from his myeloma itself. The patient voiced understanding and he again reaffirmed that he does not wish to move forward with conventional treatment with chemotherapy including steroids and transplantation. He reports that his main goal for this hospital stay is to have improvement in his back pain. Laboratory studies show that he has an IgA level that is greater than 7000. Serum free kappa/lambda light chains are pending. Serum free kappa/lambda ratio is pending. SPEP is pending. He reports that he has had a bone marrow biopsy performed at an outside facility. 2. Acute renal failure, currently with improving creatinine on fluids. Ultrasound with sonographic findings consistent with underlying medical renal disease, no obstruction, left renal cyst. Nephrology team is following. I feel that multiple factors including NSAID exposure, dehydration, hypercalcemia and myeloma involvement are contributing to his renal failure. 3. Hypercalcemia secondary to myeloma. This is currently improving with hydration. The patient's mental status is intact. 4. Anemia and thrombocytopenia with blast cells that are present and plasma cells that are present on his peripheral smear. Worried that he has worsening myeloma that is completely uncontrolled as he has essentially had no treatment of his disease. The patient declines further workup at this point in time. MD MEGHAN Lott/DINORAH , 12:40 PM , 01:21 PM HUSAM
[2017-10-03 13:38] LABS: BILIRUBIN, URINE NEG (NEG); BLOOD, URINE TRACE (NEG); GLUCOSE,URINE NEG (NEG); KETONE, URINE NEG (NEG); MUCUS URINE FEW /lpf (OCC); NITRITE,URINE NEG (NEG); PH, URINE 6.5 (5.0-8.5); URINE COLOR LIGHT-YELLOW (YELLW/STRAW); URINE LEUKOCYTE ESTERASE NEG (NEG)
--- NOTE | 2017-10-03 14:11 | HHI.NPPN ---
Subjective History of Present Illness The patient is a 52 yo [place] male who was transported to this facility from [facility] in [place]. He has a hx of multiple myeloma that was diagnosed in Jun 2017, but does not have an oncologist as he has opted to pursue only holistic medicine in regards to his MM treatment. Says that he follows rather closely with his PCP, Dr. Echeverria, in [place]. Reports that he has been having significant back and hip pain for at least the past month and has been overall bedridden because of this---this is ultimately why he sought care at [facility]. We have been consulted for evaluation of renal failure. States that he has been told that his renal functions were declined in the past, but "improved with hydration." There are no other labs available to me for review at time of interview. His admitting SCr is 4.70 with eGFR of 13 He has a significantly elevated serum calcium of 11.8 Albumin 1.8. No urinalysis has been performed. He does report a significant use of OTC NSAIDs to help combat his back pain. He is open to general treatment, but does not want any chemotherapy or radiation. Interval History Patient lying in bed not in respiratory distress. Objective Data Data 10/03/17 10/04/17 18:59 06:59 Intake Total 1000 ml Balance 1000 ml IV Total 1000 ml Vital Signs Date Time Temp Pulse Resp B/P (MAP) Pulse Ox O2 Delivery O2 Flow Rate FiO2 10/03/17 08:00 97.3 68 18 127/63 (84) 96 10/03/17 04:00 97.9 70 20 114/68 (83) 96 10/03/17 00:00 98.0 73 20 133/75 (94) 96 10/02/17 20:00 98.3 70 20 124/76 (92) 95 10/02/17 16:00 98.0 83 17 117/75 (89) 95 -: 10/01/17 0051 10/03/17 0558 Physical Exam General Appearance: No Acute Distress, Comfortable Eyes Eye Exam: Sclera White Neck Neck Exam: Trachea Midline Pulmonary Resp Exam: Clear Bilaterally, Breath Sounds Equal Cardiology CV Exam: Regular, Normal Sinus Rhythm Gastrointestinal/Abdomen GI Exam: Soft, Non-Tender Integumentary Skin Exam: Clear, Warm Extremeties Extremities Exam: No Edema Assessment/Plan Discussed Condition With: Patient Problem List: (1) Acute renal failure ICD Codes: N17.9 - Acute kidney failure, unspecified Plan: His acute renal failure is likely multifactorial: NSAID exposure, dehydration related to poor oral intake worsened by hypercalcemia, vasospasm related to hypercalcemia, probable potential for myeloma involvement of the kidneys. His serum light chain level is about 1500 which would be consistent with the possibility of light chain cast nephropathy. Await urine immunofixation to determine if patient predominantly has light chains in the urine. Patient's renal indices have improved as discussed with the patient however I suspect that he has significant underlying intrinsic chronic kidney disease and the ultrasound findings appear to be consistent with same as discussed with him. I advised him to avoid using NSAIDs for analgesia. He could use acetaminophen with then dosing guidelines as discussed with him. He was also counseled that I believe his underlying renal disease is related to his multiple myeloma and that the recommended treatment of same is conventional medical treatment of the myeloma as recommended by the senior technical analyst/oncologist. Unfortunately patient appears to have declined this recommendation. I advised him that he should establish with a major gifts director in the [place] area where he resides as he will likely progressed to end-stage renal disease with a requirement for dialysis in the future. We will reduce IV fluids at this point in time as the hypercalcemia has resolved. I will see this patient on a as needed basis only in-house and as indicated above patient was advised to establish with a major gifts director in his local community as soon as possible post discharge. Please call with any questions for this admission. Medications should be adjusted for the patient's renal decline. Avoid nephrotoxic medications including iodinated contrast dyes and NSAIDs. (2) Hypercalcemia ICD Codes: E83.52 - Hypercalcemia Plan: Multifactorial in origin most likely related to myeloma as well as vitamin D toxicity. Patient was advised to avoid vitamin D supplementation for the present and if he decides to resume same to discuss this with his physician. I would not recommend that he take any more than 1000 -2000 units daily if it is resumed with monitoring of levels. (3) Multiple myeloma ICD Codes: C90.00 - Multiple myeloma not having achieved remission Status: Chronic Plan: Oncology consultation reviewed. Plan the patient is refusing treatment of his myeloma recommended by the oncologist and wishes to continue holistic treatment. I indicated to him that I did not believe that this was a good decision given the multiple comorbidities patient appears to have related to his myeloma despite his holistic treatment plan.. (4) Anemia ICD Codes: D64.9 - Anemia, unspecified Plan: Elevated iron levels. Await oncology opinion. 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 Discussion with patient as above. Eliseo Titus MD Oct 03, 2017 14:11
[2017-10-03] MEDS ORDERED: SENN187 PO (15:39)
[2017-10-03] MEDS ORDERED: HYDR-3583 PO (15:39)
--- NOTE | 2017-10-03 15:40 | HHI.DS ---
Discharge Summary Admission Date October 01, 2017 at 00:00 Discharge Date: Oct 04, 2017 Admitting Diagnosis Acute Renal Failure . (1) Acute renal failure ICD Code: N17.9 - Acute kidney failure, unspecified (2) Multiple myeloma ICD Code: C90.00 - Multiple myeloma not having achieved remission Status: Chronic Procedures none Brief History - From Admission Mr. Ambrosio is a 52 y/o male desiring only holistic treatment of multiple myeloma diagnosed in June 2017 with history of atrial fibrillation s/p cardioversion x 3 - not on anticoagulation, chronic back pain, and right shoulder staph infection who presented to the ER on 09/30/17 at [facility] for evaluation of chronic back pain and inability to ambulate. He was transferred to [facility] because he's noted to be in acute renal failure at [facility] and they had no hand cigar maker on duty for the next 2 days. The patient is seen in his hospital room. The patient reports progressively worsening back pain with increasing weakness. Currently rates pain 6/10, aching in quality. Also complaining of left hip "muscle spasm". Denies bowel or bladder incontinence. He has been unable to ambulate for three days. He wants to discuss with his whether or not they would like a second opinion from an oncologist here. He states he believes his kidney problems are related to dehydration and not multiple myeloma and will improve with hydration. CBC/BMP: 10/01/17 0051 10/03/17 0558 Significant Findings Laboratory Tests Test 10/01/17 00:51 10/02/17 04:50 10/03/17 05:58 10/03/17 13:00 Red Blood Count 2.32 MIL/MM3 (4.50-5.90) Hemoglobin 7.3 GM/DL (13.0-17.0) Hematocrit 20.9 % (39.0-51.0) Red Cell Distribution Width 18.3 % (11.6-17.2) Platelet Count 60 TH/MM3 (150-450) Neutrophils # (Manual) 1.6 TH/MM3 (1.8-7.7) Metamyelocytes 2 % (0-1) Nucleated Red Blood Cells 2 /100 WBC (0-0) Atypical Lymphocytes 9 % (0-0) Blastocytes 1 % (0-0) Plasma Cells 3 % (0-0) Platelet Estimate LOW (NORMAL) Basophilic Stippling FAINT (NORMAL) Rouleau PRESENT (NORMAL) Blood Urea Nitrogen 56 MG/DL (7-18) 48 MG/DL (7-18) 37 MG/DL (7-18) Creatinine 4.70 MG/DL (0.60-1.30) 3.87 MG/DL (0.60-1.30) 3.13 MG/DL (0.60-1.30) Total Protein 12.8 GM/DL (6.4-8.2) 12.5 GM/DL (6.4-8.2) 11.6 GM/DL (6.4-8.2) Albumin 1.8 GM/DL (3.4-5.0) 1.8 GM/DL (3.4-5.0) 1.7 GM/DL (3.4-5.0) Calcium Level 11.8 MG/DL (8.5-10.1) 10.7 MG/DL (8.5-10.1) Alkaline Phosphatase 43 U/L (45-117) Estimat Glomerular Filtration Rate 13 ML/MIN (>89) 16 ML/MIN (>89) 21 ML/MIN (>89) Chloride Level 108 MEQ/L (98-107) 113 MEQ/L (98-107) Carbon Dioxide Level 19.8 MEQ/L (21.0-32.0) 18.0 MEQ/L (21.0-32.0) Protein Corrected Calcium 8.0 MG/DL (8.5-10.1) 7.7 MG/DL (8.5-10.1) Total Iron Binding Capacity 134 MCG/DL (250-450) Percent Iron Saturation 93.8 % (20-50) 25-Hydroxy Vitamin D Total GREATER THAN 150.0 ng/ML Immunoglobulin G Total 161 MG/DL (660-1640) Immunoglobulin A GREATER THAN 7000 MG/DL Immunoglobulin M LESS THAN 8 MG/DL (40-247) Immunoglobulin Noel/Lambda Ratio 0.02 (1.57-3.93) Complement C3 64 MG/DL (90-180) Noel Light Chain Analysis 37 MG/DL (170-370) Lambda Light Chain Analysis 1750 MG/DL (90-210) Urine Occult Blood TRACE (NEG) Urine Mucus FEW /lpf (OCC) Imaging Last Impressions Thoracic Spine MRI 10/02/17 0000 Signed Impressions: CONCLUSION: 1. Old compression fractures of T12 and L1. 2. No abnormal signal identified within the thoracic cord. 3. Degenerated discs throughout the mid and lower thoracic spine with small br oad-based disc bulges but no significant neural foraminal stenosis or spinal st enosis. Renal Ultrasound 10/02/17 0000 Signed Impressions: CONCLUSION: 1. Sonographic findings consistent with underlying medical renal disease. 2. No obstruction. 3. Left renal cyst. Lumbar Spine MRI 10/02/17 0000 Signed Impressions: CONCLUSION: 1. Moderate size posterior central to right parasagittal protrusion at the L2- 3 level with mass effect on the thecal sac. 2. Disc bulges at the L3-4 through L5-S1 levels. 3. Multiple compression fracture deformities which appear chronic. 4. Abnormal marrow signal involving the T12 and L1 vertebral bodies as well as portions of the sacrum. This is of concern for the patient's known myeloma. 5. Degenerative disc and degenerative joint changes. PE at Discharge GENERAL: This is a well-nourished, well-developed patient, in no apparent distress. CARDIOVASCULAR: Regular rate and rhythm without murmurs, gallops, or rubs. RESPIRATORY: Clear to auscultation. Breath sounds equal bilaterally. No wheezes , rales, or rhonchi. GASTROINTESTINAL: Abdomen soft, non-tender, nondistended. No guarding. MUSCULOSKELETAL: Extremities without clubbing, cyanosis. NEUROLOGICAL: Awake and alert. Normal speech. Pt update on day of discharge In nad. Says pain is controlled by meds. However he is concern of having pain with transportation. Will give one dose of dilaudid prior to transportation discussed with the patient and the nurse. Patient denies any cp, sob, palpitations, no fever or chills. No n/v/d/c. Hospital Course Mr. Ambrosio is a 52 y/o male desiring only holistic treatment of multiple myeloma diagnosed in June 2017 with history of atrial fibrillation s/p cardioversion x 3 - not on anticoagulation, chronic back pain, and right shoulder staph infection who presented to the ER on 09/30/17 at [facility] for evaluation of chronic back pain and inability to ambulate. He was transferred to [facility] because he's noted to be in acute renal failure at [facility] and they had no hand cigar maker on duty for the next 2 days. Acute Renal Failure BUN 56, creatinine 4.70, and eGFR 13 on admission Received IVF with NS at 84 cc/hr consult nephrology - appreciate assistance avoid nephrotoxins Osteopenia, compression fractures CT thoracic and lumbar spine from [place] show thoracic spine: "old compression fx involving t12 without significant change from MRI 07/20. Extensive area f osteopenia involving multiple thoracici vertebral bodies likely reflective of the patient's known multiple myeloma". Lumbar spine: "recent compression fx involving L1 and L3 level new since MRI performed 07/20. No retropulsion. Central disc protrusion at the L2 - L3 level resulting in central stenosis with borderline central stenosis at L4 - L5 and L5 - s1 levels." Check left hip x-ray due to patient c/o pain check MRI thoracic and lumbar spine for further evaluation reviewed Consult neurosurgery. No indication for surgery at this time might consider injections with steroids can be done as outpatient. Clear patient for discharge. [place] 10/325 mg q4h PRN pain > 4; Robaxin 750 mg q8h prn muscle spasm Multiple Myeloma s/p two units of PRBCs and 1 unit of platelets at [place] recheck CBC in a.m. - transfuse as needed patient will discuss with whether or not they want a second oncology opinion. Patient doesn't want any further work up or treatment. Wants to go back to [facility]. Anemia likely of chronic disease. Type and screen. Transfused 2 units of blood. Repeat H&H. Transfuse if hemoglobin less than 7 or if the patient is symptomatic. DVT prophylaxis - SCDs/TEDs - chemoprophylaxis contraindicated by severe anemia The patient and family decided they want to go back to [facility]. DC to [facility] in stable condition to follow up with PCP and consultants. Pt Condition on Discharge: Stable Discharge Disposition: Discharge Home Discharge Time: > 30 minutes Discharge Instructions DIET: Follow Instructions for: Heart Healthy Diet Activities you can perform: Regular-No Restrictions Follow up Referrals: PCP Follow-up - 2-3 Days New Medications: Hydrocodone/Acetaminophen (Hydrocodone-Acetamin 10-325 mg) 10 Mg-325 Mg Tablet 1 TAB PO Q4H PRN for pain > 4 , #10 TAB Sennosides (Senna-Lax) 8.6 Mg Tab 17.2 MG PO Q12H PRN for Moderate constipation, #30 TAB Continued Medications: Beta-Glucan, (1-3) (1-4) (Beta Glucan) 70 % Powder 2000 MG PO DAILY Cyanocobalamin (Vitamin B-12) 500 Mcg Tab 2500 MCG PO DAILY for Nutritional Supplement, #1 BOTTLE 0 Refills Methocarbamol (Methocarbamol) 750 Mg Tab 750 MG PO DAILY PRN for BA, #120 TAB 0 Refills Metoprolol Tartrate (Metoprolol Tartrate) 50 Mg Tab 50 MG PO BID, #60 TAB 0 Refills Thiamine (Vitamin B-1) 100 Mg Tab 100 MG PO DAILY for Nutritional Supplement, TAB 0 Refills Ubidecarenone (Coenzyme Q-10) 200 Mg Capsule 400 MG PO DAILY [barley leaf ] () 340 MG PO [Budwig] () PO DAILY [Curcumin] () 750 MG PO DAILY Discontinued Medications: Cholecalciferol (Vitamin D3) 1,000 Unit Tab 1000 UNITS PO DAILY for Nutritional Supplement, #1 BOTTLE 0 Refills Hydrocodone/Acetaminophen ([place] 5-325 Tablet) 5 Mg-325 Mg Tablet PO Q4-6H PRN for PAIN SCALE 1 TO 10 Clover Sanchez MD Oct 03, 2017 15:40
[2017-10-03 15:56] LABS: AUTOMATED NEUTROPHIL # 1.5 TH/MM3 (1.8-7.7); BASOPHIL % 0.6 % (0.0-2.0); EOSINOPHIL % 1.1 % (0.0-4.0); LYMPH % 55.7 % (9.0-44.0); LYMPHOCYTE # 2.5 TH/MM3 (1.0-4.8); MEAN CELL VOLUME 90.3 FL (80.0-100.0); MEAN CORPUSCULAR HEMOGLOBIN 31.5 PG (27.0-34.0); MEAN CORPUSCULAR HGB CONC 34.8 % (32.0-36.0); MEAN PLATELET VOLUME 6.7 FL (7.0-11.0); MONO % 10.1 % (0.0-8.0); MONOCYTE # 0.5 TH/MM3 (0-0.9); NEUT % 32.5 % (16.0-70.0); PLATELET COUNT 43 TH/MM3 (150-450); RED BLOOD COUNT 2.07 MIL/MM3 (4.50-5.90); RED CELL DISTRIBUTION WIDTH 20.5 % (11.6-17.2); WHITE BLOOD COUNT 4.5 TH/MM3 (4.0-11.0)
[2017-10-03 16:02] LABS: HEMATOCRIT 18.7 % (39.0-51.0); HEMOGLOBIN 6.5 GM/DL (13.0-17.0)
--- NOTE | 2017-10-03 16:07 | HHI.HCPN ---
Reason for visit a. To assist with evaluation and management of symptoms including: pain b. To assist medical decision maker(s) with: better understanding of current medical conditions; weighing benefits/burdens of medical treatment options; making medical treatment decisions. Subjective/Interval History Patient seen today to follow-up on pain, goals, before my arrival to patient unit received call from requesting update regarding possible transfer back to [facility]. Patient has remained stable overnight. Renal function continues to improve. Continue IV hydration per nephrology recommends patient follow up with nephrology outpatient. BUN 37, creatinine 3.13. GFR 21. s/p oncology evaluation, oncology has met with patient and he declines to proceed with recommended standard of care chemotherapy treatment for multiple myeloma, which may provide him improved outcomes. Neurosurgery has also evaluated for L spine findings on MRI--surgery not acutely indicated though could be indicated in the future. Patient wishes to proceed with conservative management. Patient seen in room his dietitian is completing interaction with patient. He is alert, oriented. He tells me he is expecting to be discharged tomorrow. He tells me he still does not feel like he can walk, gently explore that he may require rehabilitation or home health and that he may not necessarily be fully ambulatory upon discharge from an acute care setting. Review with him recent diagnostics, improved renal function. Review with him nephrology recommendations to follow up with nephrology outpatient. He tells me that his renal failure was actually not related to his disease process but that it was primarily due to dehydration and vitamin D toxicity. He also tells me that his back issues were determined to be not secondary to his multiple myeloma process, and that he was told "it should be able to heal fine on its own " as it is not related to multiple myeloma. Patient indicates he understands that his pain may never fully be extinguished but as his back heals he hopes it will improve. He further endorses pain is "much better " today current dosing of Cashiers 10 mg. He feels this is adequate and has allowed him to be more participative and less painful during ADLs. Review with him establishing good oral bowel regimen utilizing various fruits, fluids to ensure adequate bowel movements given him his immobility, and chronic opiate use. His goal by coming here was to fix his back, and feel better enough to return home. Gently explore with him that there is nothing acutely that we can fix in his back other than the pain symptom he is feeling from the compression fracture. We also cannot vigorously restore his ability to walk that this may come with time and healing of the compression fracture, and pain control. Further explore with him that his disease process may continue to progress and he may continue to experience symptoms of this such as renal failure etc. Discussed with medical attending, patient with discharge planning for transfer back to [facility]. . Family/friend interactions Following exam call to patient provided her with update on current assessment, recent diagnostics review of various consultants recommendations etc. Review with her my recommendations for pain regimen continuing Cashiers 10, as well as maintaining a daily bowel regimen to ensure adequate bowel movements, as he will be high risk for constipation ongoing secondary to immobility and chronic opiate use. Review of oral regimens including hydration, senna T, prunes and other dried fruits as oral supplementation to help. Advised that case management would be working with case management at [facility] in terms of making transfer arrangements this would likely happen in the next day or so. Recommend patient follow-up outpatient in his own area with outpatient nephrology , as his renal functions have improved though he remains high risk for ongoing renal dysfunction and failure, and could at some point require hemodialysis. Recommend follow-up with orthopedics known to pt in [place] regarding ongoing therapy and maintenance of his back injury--for possible outpatient epidural injection. All questions answered to the best my ability, she voices appreciation for update. . Advance Directives Living Will: Completed, but not made available Health Care Surrogate: Completed, but not made available Objective Vital Signs Date Time Temp Pulse Resp B/P (MAP) Pulse Ox O2 Delivery O2 Flow Rate FiO2 10/03/17 08:00 97.3 68 18 127/63 (84) 96 10/03/17 04:00 97.9 70 20 114/68 (83) 96 10/03/17 00:00 98.0 73 20 133/75 (94) 96 10/02/17 20:00 98.3 70 20 124/76 (92) 95 10/02/17 16:00 98.0 83 17 117/75 (89) 95 Intake & Output 10/03/17 10/03/17 06:59 18:59 Intake Total 1000 ml 1000 ml Output Total 1700 ml Balance -700 ml 1000 ml IV Total 1000 ml 1000 ml Output Urine Total 1700 ml Physical Exam CONSTITUTIONAL/GENERAL: This is a thin, frail, chronically ill-appearing man. TUBES/LINES/DRAINS: Peripheral IV bilat upper extremities. SKIN: No jaundice, rashes, or lesions. small ecchymosis left wrist area . No wounds seen anteriorly. Skin warm/dry. Pale. CARDIOVASCULAR: Regular rate and rhythm without murmur. No JVD. Peripheral pulses symmetric. RESPIRATORY/CHEST: Symmetric, unlabored respirations. Lungs are clear on room air. Breath sounds equal bilaterally. GASTROINTESTINAL: Abdomen soft, non-tender, nondistended. No hepato-splenomegaly , or palpable masses. No guarding. Bowel sounds present. MUSCULOSKELETAL: Extremities without clubbing, cyanosis, or edema. No joint tenderness or effusion noted. No calf tenderness. No mottling or clubbing. NEUROLOGICAL: Awake and alert, oriented 3 . Appears to have reasonable insight and judgment. Motor and sensory grossly within normal limits. Follows commands. Cognitively sharp. Moves all extremities. PSYCHIATRIC: No obvious anxiety/depression. no apparent hallucinations or other psychotic thought process. Diagnostic Tests Laboratory Laboratory Tests Test 10/01/17 00:51 10/02/17 04:50 10/03/17 05:58 10/03/17 13:00 White Blood Count 4.5 TH/MM3 (4.0-11.0) Red Blood Count 2.32 MIL/MM3 (4.50-5.90) Hemoglobin 7.3 GM/DL (13.0-17.0) Hematocrit 20.9 % (39.0-51.0) Mean Corpuscular Volume 90.0 FL (80.0-100.0) Mean Corpuscular Hemoglobin 31.4 PG (27.0-34.0) Mean Corpuscular Hemoglobin Concent 34.9 % (32.0-36.0) Red Cell Distribution Width 18.3 % (11.6-17.2) Platelet Count 60 TH/MM3 (150-450) Mean Platelet Volume 7.1 FL (7.0-11.0) CBC Comment AUTO DIFF Differential Total Cells Counted 100 Neutrophils % (Manual) 29 % (16-70) Band Neutrophils % 4 % (0-6) Lymphocytes % 43 % (9-44) Monocytes % 7 % (0-8) Eosinophils % 2 % (0-4) Neutrophils # (Manual) 1.6 TH/MM3 (1.8-7.7) Metamyelocytes 2 % (0-1) Nucleated Red Blood Cells 2 /100 WBC (0-0) Differential Comment FINAL DIFF MANUAL Atypical Lymphocytes 9 % (0-0) Blastocytes 1 % (0-0) Plasma Cells 3 % (0-0) Platelet Estimate LOW (NORMAL) Platelet Morphology Comment NORMAL (NORMAL) Basophilic Stippling FAINT (NORMAL) Rouleau PRESENT (NORMAL) Blood Urea Nitrogen 56 MG/DL (7-18) 48 MG/DL (7-18) 37 MG/DL (7-18) Creatinine 4.70 MG/DL (0.60-1.30) 3.87 MG/DL (0.60-1.30) 3.13 MG/DL (0.60-1.30) Random Glucose 89 MG/DL (74-106) 81 MG/DL (74-106) 82 MG/DL (74-106) Total Protein 12.8 GM/DL (6.4-8.2) 12.5 GM/DL (6.4-8.2) 11.6 GM/DL (6.4-8.2) Albumin 1.8 GM/DL (3.4-5.0) 1.8 GM/DL (3.4-5.0) 1.7 GM/DL (3.4-5.0) Calcium Level 11.8 MG/DL (8.5-10.1) 10.7 MG/DL (8.5-10.1) 9.8 MG/DL (8.5-10.1) Alkaline Phosphatase 43 U/L (45-117) Aspartate Amino Transf (AST/SGOT) 17 U/L (15-37) Alanine Aminotransferase (ALT/SGPT) 16 U/L (12-78) Total Bilirubin 0.4 MG/DL (0.2-1.0) Sodium Level 139 MEQ/L (136-145) 141 MEQ/L (136-145) 143 MEQ/L (136-145) Potassium Level 4.0 MEQ/L (3.5-5.1) 4.1 MEQ/L (3.5-5.1) 3.8 MEQ/L (3.5-5.1) Chloride Level 104 MEQ/L (98-107) 108 MEQ/L (98-107) 113 MEQ/L (98-107) Carbon Dioxide Level 21.6 MEQ/L (21.0-32.0) 19.8 MEQ/L (21.0-32.0) 18.0 MEQ/L (21.0-32.0) Anion Gap 13 MEQ/L (5-15) 13 MEQ/L (5-15) 12 MEQ/L (5-15) Estimat Glomerular Filtration Rate 13 ML/MIN (>89) 16 ML/MIN (>89) 21 ML/MIN (>89) Protein Corrected Calcium 8.7 MG/DL (8.5-10.1) 8.0 MG/DL (8.5-10.1) 7.7 MG/DL (8.5-10.1) Phosphorus Level 4.4 MG/DL (2.5-4.9) 3.2 MG/DL (2.5-4.9) Iron Level 126 MCG/DL (65-175) Total Iron Binding Capacity 134 MCG/DL (250-450) Percent Iron Saturation 93.8 % (20-50) 25-Hydroxy Vitamin D Total GREATER THAN 150.0 ng/ML Parathyroid Hormone (Intact) 17.5 PG/ML (12.4-76.8) Immunoglobulin G Total 161 MG/DL (660-1640) Immunoglobulin A GREATER THAN 7000 MG/DL Immunoglobulin M LESS THAN 8 MG/DL (40-247) Immunoglobulin Gravette/Lambda Ratio 0.02 (1.57-3.93) Complement C3 64 MG/DL (90-180) Complement C4 17 MG/DL (10-40) Gravette Light Chain Analysis 37 MG/DL (170-370) Lambda Light Chain Analysis 1750 MG/DL (90-210) Hepatitis B Surface Antigen NONREACTIVE (NONREACTIVE) Hepatitis C IgG Antibody NONREACTIVE (NONREACTIVE) Urine Color LIGHT-YELLOW (YELLW/STRAW) Urine Turbidity CLEAR (CLEAR) Urine pH 6.5 (5.0-8.5) Urine Specific [place] 1.008 (1.002-1.035) Urine Protein TRACE mg/dL (NEG-TRACE) Urine Glucose (UA) NEG mg/dL (NEG) Urine Ketones NEG mg/dL (NEG) Urine Occult Blood TRACE (NEG) Urine Nitrite NEG (NEG) Urine Bilirubin NEG (NEG) Urine Urobilinogen LESS THAN 2.0 MG/DL (LESS Urine Leukocyte Esterase NEG (NEG) Urine RBC LESS THAN 1 /hpf (0-3) Urine WBC LESS THAN 1 /hpf (0-5) Urine Mucus FEW /lpf (OCC) Result Diagram: 10/01/17 0051 10/03/17 0558 Imaging Last Impressions Thoracic Spine MRI 10/02/17 0000 Signed Impressions: CONCLUSION: 1. Old compression fractures of T12 and L1. 2. No abnormal signal identified within the thoracic cord. 3. Degenerated discs throughout the mid and lower thoracic spine with small br oad-based disc bulges but no significant neural foraminal stenosis or spinal st enosis. Renal Ultrasound 10/02/17 0000 Signed Impressions: CONCLUSION: 1. Sonographic findings consistent with underlying medical renal disease. 2. No obstruction. 3. Left renal cyst. Lumbar Spine MRI 10/02/17 0000 Signed Impressions: CONCLUSION: 1. Moderate size posterior central to right parasagittal protrusion at the L2- 3 level with mass effect on the thecal sac. 2. Disc bulges at the L3-4 through L5-S1 levels. 3. Multiple compression fracture deformities which appear chronic. 4. Abnormal marrow signal involving the T12 and L1 vertebral bodies as well as portions of the sacrum. This is of concern for the patient's known myeloma. 5. Degenerative disc and degenerative joint changes. Assessment and Plan Disease Oriented Problem List: (1) Hypercalcemia (2) Acute renal failure (3) Anemia (4) Multiple myeloma (5) Compression fx, lumbar spine (6) Atrial fibrillation status post cardioversion (7) Back pain (8) Right shoulder pain Comment: hx staph infection . Symptom Scale: (1) Pain 0-10 Scale: 8 Pertinent Non-Medical Issues Psychosocial: Spiritual: Legal:Patient currently alert and oriented, appears to have insight and able to make his own decisions. He reports his is designated healthcare surrogate. Request them to bring copies of these documents. In absence of documentation his would be appropriate legal proxy per [place] statutes. Ethical issues impacting care:none identified . Important Contacts Tammie Ambrosio [phone] . Prognosis This patient was transferred from [facility] here for further evaluation of acute renal failure. He has underlying history of multiple myeloma, diagnosed in June of this year. He has not undergone any aggressive treatment for this. Has been treating holistically. He has most recently been primarily bedbound, with significant pain and weakness to his back. He appears to have some recent compression fractures to L spine, likely secondary to osteopenia, underlying multiple myeloma. He is at risk for ongoing complications and continued decline secondary to progression of disease process. He is unlikely to achieve disease remission without aggressive oncology intervention. . Code Status: Full Code Plan Legal decision maker:Patient currently alert and oriented, appears to have insight and able to make his own decisions. He reports his is designated healthcare surrogate. Request them to bring copies of these documents. In absence of documentation his would be appropriate legal proxy per [place] statutes. Goals: Met initially with patient at length at bedside. He appears to have reasonable understanding of his disease process and possible prognosis. He indicates he is done much research online and is elected to not undergo chemo or radiation therapies due to concern for severe side effects. He has been primarily treating this holistically-with oral vitamin and herbal supplements. Pt primarily desire better pain control and return back to his prior status/ condition ---> He is open to oncology consultation here, oncology evaluated-pt not interested in additional therapy ---> s/p neurosurgery evaluation- rec. conservative tx, the possible surgery could be indicated in the future. No surgical interventions acutely indicated. --> Nephrology following, patient renal function stabilized okay to transfer back to [facility]; recommend patient follow-up with nephrology outpatient CODE STATUS: full code SYMPTOMS: --Pain-patient indicates ongoing back pain for the past month or so worsened significantly in the past several days to week such that he has been primarily bedbound. Recent imaging per [facility] facility showed old compression fracture, osteopenia, lumbar spine with possible new recent compression fracture L1 and L3. Patient also with stenosis at L4, 5 and L5, S1. , Neurosurgery has evaluated no acute surgical indications though may require surgery in the future. Patient to proceed with conservative management, PT etc. Patient has indicated that Cashiers 5 was not providing adequate relief. This was changed to Cashiers 10 mg yesterday, he indicates much better relief with this today amenable to continuing Cashiers 10 prn , recommend this be continued upon transfer to different facility, and outpatient --Weight loss/poor appetite -likely secondary to disease process. He indicates that he lost around 30 pounds at initial diagnosis with myeloma around June, and he may have lost another 30 pounds since then due to "eating healthier ". He indicates that generally he just does not feel hungry, and less it is a food item that he really likes. May benefit from an appetite stimulant though he may be reluctant to take as he prefers holistic treatments and generally does not welcome chemical substances. Palliative care will continue to follow during hospital course as condition evolves, to assist patient/decision-maker with understanding of medical conditions, weighing benefits/burdens of treatment options, for clarification of goals of treatment. Additionally will assist with any symptoms of palliative concern . Time Spent Total Floor Time (mins): 35 (Chart review, PE, discussion with medical attending, discussion with patient and patient ) Attestation To help prompt me to consider important information that might be impacting today's encounter and assessment, information from prior notes written by myself or my colleagues may have been "brought forward" into today's note. My signature on this note, however, is an attestation that I personally performed the exam, history, and/or decision-making noted today, and, unless otherwise indicated, the interactions with patient, family, and staff as well as the review of records all occurred today. I also attest that the listed assessment and stated plan reflect my best clinical judgment today based on the combination of historical information, prior notes, and today's exam/ interactions. When time spent is documented, it refers only to time spent today by the signer, or if indicated, combined time spent today by collaborating physician/nurse practitioner. Flora Car Oct 03, 2017 16:07
[2017-10-03] MEDS ORDERED: ACETAMINOPHEN 325 MG TAB PO PRN (17:00)
[2017-10-03] MEDS ORDERED: diphenhydrAMINE HCL 25 MG CAP PO PRN (17:00)
[2017-10-03] MEDS ORDERED: POTASSIUM CHLORIDE 10 MEQ CONTROLLED RELEASE TAB PO ONE (17:00)
[2017-10-03] MEDS ORDERED: FUROSEMIDE 20 MG/2 ML VIAL IV PUSH ONE (17:00)
[2017-10-03] MEDS ORDERED: SODIUM CHLOR 0.9% 250 ML INJ 250 ML IV ONE (17:00)
[2017-10-03 17:06] LABS: BANDS 4 % (0-6); CORRECTED NUCLEATED RBC 2 /100 WBC (0-0); LYMPHOCYTES 34 % (9-44); MONOCYTES 13 % (0-8); NEUTROPHIL # MANUAL DIFF 2.2 TH/MM3 (1.8-7.7); NUCLEATED RED BLOOD CELL 2 (0-0); PLASMA CELLS 1 % (0-0); POLYS (SEG NEUTROPHILS) 45 % (16-70); ROULEAUX PRESENT (NORMAL); TEARDROP RBCS 1+ (NORMAL)
[2017-10-04] VITALS (7 sets, daily range): BP systolic 120–133; BP diastolic 65–74; PULSE 61–79; RESP 18–20; TEMP 97.6–98.7; O2SAT 94–97
[2017-10-04] MEDS: SODIUM CHLOR 0.9% 1000 ML INJ 1,000 ML IV SCH ×3 (02:11→23:49)
[2017-10-04 04:06] LABS: AUTOMATED NEUTROPHIL # 1.4 TH/MM3 (1.8-7.7); BASOPHIL % 0.6 % (0.0-2.0); EOSINOPHIL # 0.1 TH/MM3 (0-0.4); EOSINOPHIL % 1.8 % (0.0-4.0); HEMATOCRIT 23.1 % (39.0-51.0); HEMOGLOBIN 8.2 GM/DL (13.0-17.0); LYMPH % 54.8 % (9.0-44.0); LYMPHOCYTE # 2.4 TH/MM3 (1.0-4.8); MEAN CELL VOLUME 88.4 FL (80.0-100.0); MEAN CORPUSCULAR HEMOGLOBIN 31.5 PG (27.0-34.0); MEAN CORPUSCULAR HGB CONC 35.7 % (32.0-36.0); MEAN PLATELET VOLUME 6.4 FL (7.0-11.0); MONO % 10.8 % (0.0-8.0); MONOCYTE # 0.5 TH/MM3 (0-0.9); PLATELET COUNT 42 TH/MM3 (150-450); RED BLOOD COUNT 2.62 MIL/MM3 (4.50-5.90); RED CELL DISTRIBUTION WIDTH 18.5 % (11.6-17.2); WHITE BLOOD COUNT 4.3 TH/MM3 (4.0-11.0)
[2017-10-04 04:24] LABS: ALBUMIN 1.6 GM/DL (3.4-5.0); BICARBONATE 17.6 MEQ/L (21.0-32.0); CALCIUM 9.6 MG/DL (8.5-10.1); CREATININE 2.7 MG/DL (0.60-1.30); PHOSPHORUS 3.2 MG/DL (2.5-4.9)
[2017-10-04 06:50] LABS: BANDS 2 % (0-6); CORRECTED NUCLEATED RBC 4 /100 WBC (0-0); LYMPHOCYTES 27 % (9-44); MONOCYTES 5 % (0-8); MYELOCYTES 1 % (0-0); NEUTROPHIL # MANUAL DIFF 2.8 TH/MM3 (1.8-7.7); NUCLEATED RED BLOOD CELL 4 (0-0); PLASMA CELLS 2 % (0-0); POLYS (SEG NEUTROPHILS) 62 % (16-70)
[2017-10-04 06:51] LABS: ROULEAUX PRESENT (NORMAL)
[2017-10-04] MEDS: METOPROLOL TARTRATE 50 MG TAB PO SCH ×2 (10:30→19:45)
[2017-10-04] MEDS: SODIUM CHLORIDE 0.9% FLUSH 10 ML FLUSH IV FLUSH SCH ×2 (10:30→19:42)
--- NOTE | 2017-10-04 11:20 | PD.ONC.PN ---
Subjective Subjective Remarks Afebrile overnight. Patient resting in room. states back pain has improved. he is hopeful to go home today. (patient seen at 930AM) Objective Data Date Time Temp Pulse Resp B/P (MAP) Pulse Ox O2 Delivery O2 Flow Rate FiO2 10/04/17 08:00 97.6 79 20 120/65 (83) 96 10/04/17 04:00 97.7 68 18 121/65 10/04/17 04:00 97.7 69 18 121/65 (83) 95 10/04/17 00:36 98.7 18 127/70 10/04/17 00:00 97.8 75 18 127/70 (89) 97 10/03/17 21:00 97.4 18 124/70 99 10/03/17 20:25 97.9 64 20 119/64 10/03/17 20:19 84 10/03/17 20:00 97.9 67 18 119/66 (83) 98 10/03/17 16:00 98.0 72 19 127/71 (89) 96 10/03/17 12:00 97.4 64 18 126/66 (86) 97 10/04/17 10/04/17 10/04/17 07:00 15:00 23:00 Intake Total 1085 ml Output Total 900 ml Balance 185 ml Result Diagram: 10/04/17 0339 10/04/17 0339 Laboratory Results Laboratory Tests Test 10/03/17 13:00 10/03/17 14:52 10/04/17 03:39 Urine Color LIGHT-YELLOW Urine Turbidity CLEAR Urine pH 6.5 Urine Specific [place] 1.008 Urine Protein TRACE mg/dL Urine Glucose (UA) NEG mg/dL Urine Ketones NEG mg/dL Urine Occult Blood TRACE Urine Nitrite NEG Urine Bilirubin NEG Urine Urobilinogen LESS THAN 2.0 MG/DL Urine Leukocyte Esterase NEG Urine RBC LESS THAN 1 /hpf Urine WBC LESS THAN 1 /hpf Urine Mucus FEW /lpf White Blood Count 4.5 TH/MM3 4.3 TH/MM3 Red Blood Count 2.07 MIL/MM3 2.62 MIL/MM3 Hemoglobin 6.5 GM/DL 8.2 GM/DL Hematocrit 18.7 % 23.1 % Mean Corpuscular Volume 90.3 FL 88.4 FL Mean Corpuscular Hemoglobin 31.5 PG 31.5 PG Mean Corpuscular Hemoglobin Concent 34.8 % 35.7 % Red Cell Distribution Width 20.5 % 18.5 % Platelet Count 43 TH/MM3 42 TH/MM3 Mean Platelet Volume 6.7 FL 6.4 FL Neutrophils (%) (Auto) 32.5 % 32.0 % Lymphocytes (%) (Auto) 55.7 % 54.8 % Monocytes (%) (Auto) 10.1 % 10.8 % Eosinophils (%) (Auto) 1.1 % 1.8 % Basophils (%) (Auto) 0.6 % 0.6 % Neutrophils # (Auto) 1.5 TH/MM3 1.4 TH/MM3 Lymphocytes # (Auto) 2.5 TH/MM3 2.4 TH/MM3 Monocytes # (Auto) 0.5 TH/MM3 0.5 TH/MM3 Eosinophils # (Auto) 0.0 TH/MM3 0.1 TH/MM3 Basophils # (Auto) 0.0 TH/MM3 0.0 TH/MM3 CBC Comment AUTO DIFF AUTO DIFF Differential Total Cells Counted 100 100 Neutrophils % (Manual) 45 % 62 % Band Neutrophils % 4 % 2 % Lymphocytes % 34 % 27 % Monocytes % 13 % 5 % Eosinophils % 3 % 1 % Neutrophils # (Manual) 2.2 TH/MM3 2.8 TH/MM3 Nucleated Red Blood Cells 2 /100 WBC 4 /100 WBC Differential Comment FINAL DIFF MANUAL FINAL DIFF MANUAL Atypical Lymphocytes % Plasma Cells 1 % 2 % Platelet Estimate LOW LOW Platelet Morphology Comment NORMAL NORMAL Tear Drop Cells 1+ Rouleau PRESENT PRESENT Myelocytes 1 % Blood Urea Nitrogen 27 MG/DL Creatinine 2.70 MG/DL Random Glucose 84 MG/DL Albumin 1.6 GM/DL Calcium Level 9.6 MG/DL Phosphorus Level 3.2 MG/DL Sodium Level 141 MEQ/L Potassium Level 3.5 MEQ/L Chloride Level 110 MEQ/L Carbon Dioxide Level 17.6 MEQ/L Anion Gap 13 MEQ/L Estimat Glomerular Filtration Rate 25 ML/MIN Administered Medications Medications (Trade) Dose Ordered Sig/Nubia Route PRN Reason Start Time Stop Time Status Last Admin Dose Admin Metoprolol Tartrate (Lopressor) 50 mg BID PO 10/01/17 09:00 10/04/17 10:30 Sodium Chloride 1,000 ml @ 80 mls/hr [id number] IV 10/01/17 05:00 10/03/17 12:55 Sodium Chloride (NS Flush) 2 ml BID IV FLUSH 10/01/17 09:00 10/04/17 10:30 Acetaminophen/ Hydrocodone Bitart ([place] 10-325 Mg) 1 tab Q4H PRN PO pain > 4 10/02/17 16:00 10/03/17 19:20 Objective Remarks GENERAL: Middle aged male, lying supine in bed. He is talking on the phone and appears comfortable and in nad. SKIN: Warm and dry. HEAD: Normocephalic. EYES: No injection or drainage. NECK: Supple, trachea midline. CARDIOVASCULAR: Regular rate and rhythm RESPIRATORY: Breath sounds equal bilaterally. No accessory muscle use. GASTROINTESTINAL: Abdomen soft, non-tender, nondistended. EXTREMITIES: No cyanosis NEUROLOGICAL: awake and alert. normal speech. moving extremities. Assessment/Plan Assessment 52y/o male with multiple myeloma, transferred from [facility] for evaluation by nephrology team for acute kidney injury istory of atrial fibrillation, status post cardioversion x 3, not currently on anticoagulation. Multiple myeloma diagnosed in early 2017, chronic back pain and a history of a staph infection of his right shoulder, --initially presented to the [facility] ED on 09/30/2017 for evaluation of chronic back pain and inability to ambulate. W Plan 1. IgA lambda light chain multiple myeloma --patient is insistent in his desire not to pursue conventional treatment. --states he wants only holistic treatment. 2. Acute renal failure, --improving with IVF 3. Anemia and thrombocytopenia + blast and plasma cells present on his peripheral smear. --likely d/t worsening myeloma --patient declines further workup at this point in time. Attending Statement The exam, history, and the medical decision-making described in the above note were completed with the assistance of the mid-level provider. I reviewed and agree with the findings presented. I attest that I had a [id number] encounter with the patient on the same day, and personally performed and documented my assessment and findings in the medical record refusing treatment for Multiple Myeloma says he will try "ALTERNATIVE TREATMENT" in renal failure supportive care advised that there is good treatment for MM and he risks getting life threatening complications if does not consider established/evidence based treatments he says " i understand" will follow peripherally Jody Shahid Oct 04, 2017 11:20 Federico Rosales MD Oct 04, 2017 11:59
[2017-10-04] MEDS: ACETAMINOPHEN/HYDROcodone 325 MG/10 MG TAB PO PRN ×2 (13:36→19:41)
[2017-10-04] MEDS ORDERED: HYDROmorphone HCL PF 0.5 MG/0.5 ML SYRINGE IV PUSH SCH (14:00)
--- NOTE | 2017-10-04 14:55 | HHI.PR ---
Subjective Remarks In nad. Says pain in his back is controlled by meds. Patient denies any cp, sob, palpitations, no fever or chills. No n/v/d/c. Objective Vitals Vital Signs Date Time Temp Pulse Resp B/P (MAP) Pulse Ox O2 Delivery O2 Flow Rate FiO2 10/04/17 12:00 97.8 65 20 131/70 (90) 97 10/04/17 08:00 97.6 79 20 120/65 (83) 96 10/04/17 04:00 97.7 68 18 121/65 10/04/17 04:00 97.7 69 18 121/65 (83) 95 10/04/17 00:36 98.7 18 127/70 10/04/17 00:00 97.8 75 18 127/70 (89) 97 10/03/17 21:00 97.4 18 124/70 99 10/03/17 20:25 97.9 64 20 119/64 10/03/17 20:19 84 10/03/17 20:00 97.9 67 18 119/66 (83) 98 10/03/17 16:00 98.0 72 19 127/71 (89) 96 I/O 10/03/17 10/03/17 10/03/17 10/04/17 10/04/17 10/04/17 06:59 14:59 22:59 06:59 14:59 22:59 Intake Total 1000 ml 1000 ml 640 ml 1085 ml 980 ml Output Total 1700 ml 600 ml 900 ml 300 ml Balance -700 ml 1000 ml 40 ml 185 ml 680 ml Intake Oral 640 ml 240 ml 480 ml IV Total 1000 ml 1000 ml 500 ml Packed Cells 800 ml Blood Product IV Normal Saline Flush 45 ml Output Urine Total 1700 ml 600 ml 900 ml 300 ml # Bowel Movements 1 0 Result Diagram: 10/04/17 0339 10/04/17 0339 Objective Remarks GENERAL: This is a well-nourished, well-developed patient, in no apparent distress. CARDIOVASCULAR: Regular rate and rhythm without murmurs, gallops, or rubs. RESPIRATORY: Clear to auscultation. Breath sounds equal bilaterally. No wheezes , rales, or rhonchi. GASTROINTESTINAL: Abdomen soft, non-tender, nondistended. No guarding. MUSCULOSKELETAL: Extremities without clubbing, cyanosis. NEUROLOGICAL: Awake and alert. Normal speech. Procedures none A/P Problem List: (1) Acute renal failure ICD Code: N17.9 - Acute kidney failure, unspecified (2) Multiple myeloma ICD Code: C90.00 - Multiple myeloma not having achieved remission Status: Chronic Assessment and Plan Mr. Ambrosio is a 52 y/o male desiring only holistic treatment of multiple myeloma diagnosed in June 2017 with history of atrial fibrillation s/p cardioversion x 3 - not on anticoagulation, chronic back pain, and right shoulder staph infection who presented to the ER on 09/30/17 at [facility] for evaluation of chronic back pain and inability to ambulate. 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 Acute Renal Failure BUN 56, creatinine 4.70, and eGFR 13 on admission Received IVF with NS at 84 cc/hr consult nephrology - appreciate assistance avoid nephrotoxins Osteopenia, compression fractures CT thoracic and lumbar spine from [place] show thoracic spine: "old compression fx involving t12 without significant change from MRI 07/20. Extensive area f osteopenia involving multiple thoracici vertebral bodies likely reflective of the patient's known multiple myeloma". Lumbar spine: "recent compression fx involving L1 and L3 level new since MRI performed 07/20. No retropulsion. Central disc protrusion at the L2 - L3 level resulting in central stenosis with borderline central stenosis at L4 - L5 and L5 - s1 levels." Check left hip x-ray due to patient c/o pain check MRI thoracic and lumbar spine for further evaluation reviewed Consult neurosurgery. No indication for surgery at this time might consider injections with steroids can be done as outpatient. Clear patient for discharge. [place] 10/325 mg q4h PRN pain > 4; Robaxin 750 mg q8h prn muscle spasm Multiple Myeloma s/p two units of PRBCs and 1 unit of platelets at [place] recheck CBC in a.m. - transfuse as needed patient will discuss with whether or not they want a second oncology opinion. Patient doesn't want any further work up or treatment. Wants to go back to [place]. Anemia likely of chronic disease. Type and screen. Transfused 2 units of blood. Repeat H&H. Transfuse if hemoglobin less than 7 or if the patient is symptomatic. DVT prophylaxis - SCDs/TEDs - chemoprophylaxis contraindicated by severe anemia Discussed Condition With Patient, nurse, family at bedside. Discussed with Flora from palliative care. Discussed with case management. DC plan: The patient and family decided they want to go back to [facility]. However patient went to ED and was not admitted to the hospital. Patient can't walk and will likely need SNF. We will have physical therapy for evaluation and recommendations. Clover Sanchez MD Oct 04, 2017 14:55
[2017-10-05] VITALS (7 sets, daily range): BP systolic 124–154; BP diastolic 59–83; PULSE 54–68; RESP 16–18; TEMP 97.4–97.8; O2SAT 94–96
[2017-10-05 06:13] LABS: HEMATOCRIT 21.9 % (39.0-51.0); HEMOGLOBIN 7.7 GM/DL (13.0-17.0); MEAN CELL VOLUME 88.6 FL (80.0-100.0); MEAN PLATELET VOLUME 6.4 FL (7.0-11.0); PLATELET COUNT 38 TH/MM3 (150-450); RED BLOOD COUNT 2.47 MIL/MM3 (4.50-5.90); RED CELL DISTRIBUTION WIDTH 18.7 % (11.6-17.2); WHITE BLOOD COUNT 4.4 TH/MM3 (4.0-11.0)
[2017-10-05 06:42] LABS: ALBUMIN 1.5 GM/DL (3.4-5.0); ALKALINE PHOSPHATASE 35 U/L (45-117); ALT (GPT) 15 U/L (12-78); AST (GOT) 13 U/L (15-37); BICARBONATE 16.8 MEQ/L (21.0-32.0); BLOOD UREA NITROGEN 25 MG/DL (7-18); CHLORIDE 113 MEQ/L (98-107); CREATININE 2.59 MG/DL (0.60-1.30); GLOMERULAR FILTRATION RATE 26 ML/MIN (>89); GLUCOSE,RANDOM 84 MG/DL (74-106); SODIUM (NA) 143 MEQ/L (136-145); TOTAL BILIRUBIN ADULT 0.4 MG/DL (0.2-1.0); TOTAL PROTEIN 10.6 GM/DL (6.4-8.2)
[2017-10-05] MEDS: METOPROLOL TARTRATE 50 MG TAB PO SCH ×2 (08:17→19:32)
[2017-10-05] MEDS: SODIUM CHLORIDE 0.9% FLUSH 10 ML FLUSH IV FLUSH SCH ×2 (08:17→19:32)
--- NOTE | 2017-10-05 08:58 | HHI.PR ---
Subjective Remarks Less pain in his back however he is not walking. No fever or chills No sob Received blood transfusion yesterday Objective Vitals Vital Signs Date Time Temp Pulse Resp B/P (MAP) Pulse Ox O2 Delivery O2 Flow Rate FiO2 10/05/17 08:00 97.5 67 17 135/72 (93) 94 10/05/17 04:00 97.7 66 18 154/77 (102) 96 10/05/17 00:00 97.4 62 18 124/59 (80) 96 10/04/17 20:00 97.9 61 18 133/74 (93) 96 10/04/17 16:00 97.9 68 18 133/73 (93) 94 10/04/17 12:00 97.8 65 20 131/70 (90) 97 I/O 10/04/17 10/04/17 10/04/17 10/05/17 10/05/17 10/05/17 07:00 15:00 23:00 07:00 15:00 23:00 Intake Total 1085 ml 980 ml 1240 ml 80 ml Output Total 900 ml 300 ml 500 ml 300 ml Balance 185 ml 680 ml -500 ml 940 ml 80 ml Intake Oral 240 ml 480 ml 240 ml IV Total 500 ml 1000 ml 80 ml Packed Cells 800 ml Blood Product IV Normal Saline Flush 45 ml Output Urine Total 900 ml 300 ml 500 ml 300 ml # Bowel Movements 0 Result Diagram: 10/05/17 0417 10/05/17416 Imaging Last Impressions Thoracic Spine MRI 10/02/17 Signed Impressions: CONCLUSION: 1. Old compression fractures of T12 and L1. 2. No abnormal signal identified within the thoracic cord. 3. Degenerated discs throughout the mid and lower thoracic spine with small br oad-based disc bulges but no significant neural foraminal stenosis or spinal st enosis. Renal Ultrasound 10/02/17 Signed Impressions: CONCLUSION: 1. Sonographic findings consistent with underlying medical renal disease. 2. No obstruction. 3. Left renal cyst. Lumbar Spine MRI 10/02/17 Signed Impressions: CONCLUSION: 1. Moderate size posterior central to right parasagittal protrusion at the L2- 3 level with mass effect on the thecal sac. 2. Disc bulges at the L3-4 through L5-S1 levels. 3. Multiple compression fracture deformities which appear chronic. 4. Abnormal marrow signal involving the T12 and L1 vertebral bodies as well as portions of the sacrum. This is of concern for the patient's known myeloma. 5. Degenerative disc and degenerative joint changes. Objective Remarks GENERAL: This is a well-nourished, well-developed patient, in no apparent distress. CARDIOVASCULAR: Regular rate and rhythm without murmurs, gallops, or rubs. RESPIRATORY: Clear to auscultation. Breath sounds equal bilaterally. No wheezes , rales, or rhonchi. GASTROINTESTINAL: Abdomen soft, non-tender, nondistended. No guarding. MUSCULOSKELETAL: Extremities without clubbing, cyanosis. NEUROLOGICAL: Awake and alert. Normal speech. Procedures none A/P Problem List: (1) Acute renal failure ICD Code: N17.9 - Acute kidney failure, unspecified (2) Multiple myeloma ICD Code: C90.00 - Multiple myeloma not having achieved remission Status: Chronic Assessment and Plan Mr. Ambrosio is a 52 y/o male desiring only holistic treatment of multiple myeloma diagnosed in June 2017 with history of atrial fibrillation s/p cardioversion x 3 - not on anticoagulation, chronic back pain, and right shoulder staph infection who presented to the ER on 09/30/17 at [facility] for evaluation of chronic back pain and inability to ambulate. He was transferred to [facility] because he's noted to be in acute renal failure at [facility] and they had no acls specialist on duty for the next 2 days. Acute Renal Failure BUN 56, creatinine 4.70, and eGFR 13 on admission Received IVF with NS at 84 cc/hr consult nephrology - appreciate assistance avoid nephrotoxins Osteopenia, compression fractures CT thoracic and lumbar spine from [place] show thoracic spine: "old compression fx involving t12 without significant change from MRI 07/20. Extensive area f osteopenia involving multiple thoracici vertebral bodies likely reflective of the patient's known multiple myeloma". Lumbar spine: "recent compression fx involving L1 and L3 level new since MRI performed 07/20. No retropulsion. Central disc protrusion at the L2 - L3 level resulting in central stenosis with borderline central stenosis at L4 - L5 and L5 - s1 levels." Check left hip x-ray due to patient c/o pain check MRI thoracic and lumbar spine for further evaluation reviewed Consult neurosurgery. No indication for surgery at this time might consider injections with steroids can be done as outpatient. Clear patient for discharge. [place] 10/325 mg q4h PRN pain > 4; Robaxin 750 mg q8h prn muscle spasm Multiple Myeloma s/p two units of PRBCs and 1 unit of platelets at [place] recheck CBC in a.m. - transfuse as needed patient will discuss with whether or not they want a second oncology opinion. Patient doesn't want any further work up or treatment. Wants to go back to [facility]. Anemia likely of chronic disease. Type and screen. Transfused 2 units of blood. Repeat H&H. Transfuse if hemoglobin less than 7 or if the patient is symptomatic. Repeat HGB stable. DVT prophylaxis - SCDs/TEDs - chemoprophylaxis contraindicated by severe anemia Discussed Condition With Patient, nurse, family at bedside. Discussed with Flora from palliative care. Discussed with case management. DC plan: The patient and family decided they want to go back to [facility]. However patient went to ED and was not admitted to the hospital. Patient can't walk and will likely need SNF. We will have physical therapy for evaluation and recommendations. PT recommends. rehab. CM is following for DC plan. Clover Sanchez MD Oct 05, 2017 08:58
[2017-10-05 12:10] LABS: CORRECTED NUCLEATED RBC 4 /100 WBC (0-0); LYMPHOCYTES 67 % (9-44); MONOCYTES 5 % (0-8); NEUTROPHIL # MANUAL DIFF 1.1 TH/MM3 (1.8-7.7); NUCLEATED RED BLOOD CELL 4 (0-0); PLASMA CELLS 1 % (0-0); POLYS (SEG NEUTROPHILS) 25 % (16-70)
[2017-10-05 12:24] LABS: ROULEAUX PRESENT (NORMAL); SMUDGE CELLS PRESENT PRESENT
[2017-10-05] MEDS: ACETAMINOPHEN/HYDROcodone 325 MG/10 MG TAB PO PRN ×3 (12:29→23:53)
[2017-10-05] MEDS: SODIUM CHLOR 0.9% 1000 ML INJ 1,000 ML IV SCH ×2 (16:18→23:56)
[2017-10-06] VITALS (7 sets, daily range): BP systolic 119–143; BP diastolic 60–87; PULSE 55–80; RESP 17–20; TEMP 97.3–97.7; O2SAT 95–97
[2017-10-06] MEDS: SODIUM CHLORIDE 0.9% FLUSH 10 ML FLUSH IV FLUSH SCH ×2 (07:32→21:00)
--- NOTE | 2017-10-06 08:13 | HHI.PR ---
Subjective Remarks With back pain especially with movement Wants to try oxycodone No fever ro chills Appetite improved and eating better Objective Vitals Vital Signs Date Time Temp Pulse Resp B/P (MAP) Pulse Ox O2 Delivery O2 Flow Rate FiO2 10/06/17 04:00 97.5 60 18 130/60 (83) 96 10/06/17 00:00 58 10/06/17 00:00 97.7 57 18 119/64 (82) 96 10/05/17 20:00 97.8 68 18 145/83 (103) 95 10/05/17 19:21 54 10/05/17 16:00 97.7 64 16 127/73 (91) 96 10/05/17 12:00 97.8 59 17 126/77 (93) 96 I/O 10/05/17 10/05/17 10/05/17 10/06/17 10/06/17 10/06/17 06:59 14:59 22:59 06:59 14:59 22:59 Intake Total 1240 ml 80 ml 800 ml 1000 ml Output Total 300 ml 1000 ml 700 ml Balance 940 ml 80 ml -200 ml 300 ml Intake Oral 240 ml 800 ml IV Total 1000 ml 80 ml 1000 ml Output Urine Total 300 ml 1000 ml 700 ml # Bowel Movements 1 Result Diagram: 10/05/1741610/05/17416 Objective Remarks GENERAL: This is a well-nourished, well-developed patient, in no apparent distress. CARDIOVASCULAR: Regular rate and rhythm without murmurs, gallops, or rubs. RESPIRATORY: Clear to auscultation. Breath sounds equal bilaterally. No wheezes , rales, or rhonchi. GASTROINTESTINAL: Abdomen soft, non-tender, nondistended. No guarding. MUSCULOSKELETAL: Extremities without clubbing, cyanosis. NEUROLOGICAL: Awake and alert. Normal speech. Procedures none A/P Problem List: (1) Acute renal failure ICD Code: N17.9 - Acute kidney failure, unspecified (2) Multiple myeloma ICD Code: C90.00 - Multiple myeloma not having achieved remission Status: Chronic Assessment and Plan Mr. Ambrosio is a 52 y/o male desiring only holistic treatment of multiple myeloma diagnosed in June 2017 with history of atrial fibrillation s/p cardioversion x 3 - not on anticoagulation, chronic back pain, and right shoulder staph infection who presented to the ER on 09/30/17 at [facility] for evaluation of chronic back pain and inability to ambulate. He was transferred to [facility] because he's noted to be in acute renal failure at [facility] and they had no director of personnel on duty for the next 2 days. Acute Renal Failure BUN 56, creatinine 4.70, and eGFR 13 on admission Received IVF with NS at 84 cc/hr consult nephrology - appreciate assistance avoid nephrotoxins Osteopenia, compression fractures CT thoracic and lumbar spine from [place] show thoracic spine: "old compression fx involving t12 without significant change from MRI 07/20. Extensive area f osteopenia involving multiple thoracici vertebral bodies likely reflective of the patient's known multiple myeloma". Lumbar spine: "recent compression fx involving L1 and L3 level new since MRI performed 07/20. No retropulsion. Central disc protrusion at the L2 - L3 level resulting in central stenosis with borderline central stenosis at L4 - L5 and L5 - s1 levels." Check left hip x-ray due to patient c/o pain check MRI thoracic and lumbar spine for further evaluation reviewed Consult neurosurgery. No indication for surgery at this time might consider injections with steroids can be done as outpatient. Clear patient for discharge. [place] DCd. Placed on oxycodone PO per pain scale. Dilaudid for breakthrough pain Robaxin 750 mg q8h prn muscle spasm Multiple Myeloma s/p two units of PRBCs and 1 unit of platelets at [place] recheck CBC in a.m. - transfuse as needed patient will discuss with whether or not they want a second oncology opinion. Patient doesn't want any further work up or treatment. Wants to go back to [facility]. Anemia likely of chronic disease. Type and screen. Transfused 2 units of blood. Repeat H&H. Transfuse if hemoglobin less than 7 or if the patient is symptomatic. Repeat HGB stable. DVT prophylaxis - SCDs/TEDs - chemoprophylaxis contraindicated by severe anemia Discussed Condition With Patient, nurse, family at bedside. Discussed with Flora from palliative care. Discussed with case management. DC plan: The patient and family decided they want to go back to [facility]. However patient went to ED and was not admitted to the hospital. Patient can't walk and will likely need SNF. Physical therapy consulted for evaluation and recommendations, recommends SNF. PT recommends. rehab. CM is following for DC plan. Clover Sanchez MD Oct 06, 2017 08:13
[2017-10-06] MEDS: METOPROLOL TARTRATE 50 MG TAB PO SCH ×2 (09:41→21:00)
[2017-10-06 10:46] LABS: BASOPHIL % 0.6 % (0.0-2.0); EOSINOPHIL % 1.2 % (0.0-4.0); HEMATOCRIT 23.4 % (39.0-51.0); HEMOGLOBIN 8.1 GM/DL (13.0-17.0); LYMPH % 57.9 % (9.0-44.0); MEAN CORPUSCULAR HEMOGLOBIN 31.5 PG (27.0-34.0); MEAN CORPUSCULAR HGB CONC 34.6 % (32.0-36.0); MEAN PLATELET VOLUME 6.6 FL (7.0-11.0); MONOCYTE # 0.3 TH/MM3 (0-0.9); NEUT % 30.3 % (16.0-70.0); PLATELET COUNT 31 TH/MM3 (150-450); RED BLOOD COUNT 2.57 MIL/MM3 (4.50-5.90); RED CELL DISTRIBUTION WIDTH 18.8 % (11.6-17.2); WHITE BLOOD COUNT 3.4 TH/MM3 (4.0-11.0)
[2017-10-06 11:08] LABS: ALBUMIN 1.6 GM/DL (3.4-5.0); AST (GOT) 14 U/L (15-37); BICARBONATE 16.2 MEQ/L (21.0-32.0); BLOOD UREA NITROGEN 21 MG/DL (7-18); CALCIUM 10.3 MG/DL (8.5-10.1); CHLORIDE 113 MEQ/L (98-107); CREATININE 2.33 MG/DL (0.60-1.30); GLOMERULAR FILTRATION RATE 29 ML/MIN (>89); GLUCOSE,RANDOM 80 MG/DL (74-106); SODIUM (NA) 142 MEQ/L (136-145)
[2017-10-06 11:09] LABS: ALT (GPT) 15 U/L (12-78)
[2017-10-06 11:11] LABS: ALKALINE PHOSPHATASE 37 U/L (45-117); TOTAL BILIRUBIN ADULT 0.5 MG/DL (0.2-1.0); TOTAL PROTEIN 10.8 GM/DL (6.4-8.2)
[2017-10-06] MEDS: ACETAMINOPHEN/HYDROcodone 325 MG/10 MG TAB PO PRN (11:53)
[2017-10-06 14:27] LABS: BANDS 2 % (0-6); CORRECTED NUCLEATED RBC 4 /100 WBC (0-0); LYMPHOCYTES 46 % (9-44); METAMYELOCYTES 2 % (0-1); MONOCYTES 14 % (0-8); MYELOCYTES 2 % (0-0); NEUTROPHIL # MANUAL DIFF 1.1 TH/MM3 (1.8-7.7); NUCLEATED RED BLOOD CELL 4 (0-0); PLASMA CELLS 1 % (0-0); POLYS (SEG NEUTROPHILS) 26 % (16-70)
[2017-10-06 14:28] LABS: ROULEAUX PRESENT (NORMAL)
[2017-10-06] MEDS ORDERED: HYDROmorphone HCL PF 0.5 MG/0.5 ML SYRINGE IV PUSH PRN (14:30)
[2017-10-06] MEDS ORDERED: OXYC-392 PO (14:56)
[2017-10-06] MEDS: SODIUM CHLOR 0.9% 1000 ML INJ 1,000 ML IV SCH (17:12)
[2017-10-07] VITALS: BP 137/72; PULSE 62; RESP 20; TEMP 97.8; O2SAT 95
[2017-10-07 04:00] VITALS: BP 123/64; PULSE 64; RESP 18; TEMP 97.8; O2SAT 95
[2017-10-07] MEDS: SODIUM CHLORIDE 0.9% FLUSH 10 ML FLUSH IV FLUSH SCH (06:52)
[2017-10-07 08:00] VITALS: BP 155/90; PULSE 70; RESP 17; TEMP 97.8; O2SAT 95
[2017-10-07] MEDS: METOPROLOL TARTRATE 50 MG TAB PO SCH (09:17)
[2017-10-07] MEDS: SODIUM CHLOR 0.9% 1000 ML INJ 1,000 ML IV SCH (09:17)
--- NOTE | 2017-10-07 11:13 | HHI.PR ---
Subjective Remarks With pain in his back especially with the movement. Oxycodone helps better No fever or chills. No n/v/d/c. Objective Vitals Vital Signs Date Time Temp Pulse Resp B/P (MAP) Pulse Ox O2 Delivery O2 Flow Rate FiO2 10/07/17 08:00 97.8 70 17 155/90 (111) 95 10/07/17 04:00 97.8 64 18 123/64 (83) 95 10/07/17 00:00 97.8 62 20 137/72 (93) 95 10/06/17 20:00 97.7 57 20 128/71 (90) 96 10/06/17 16:00 97.5 61 17 126/72 (90) 97 10/06/17 12:00 97.3 80 19 143/87 (105) 95 I/O 10/06/17 10/06/17 10/06/17 10/07/17 10/07/17 10/07/17 07:00 15:00 23:00 07:00 15:00 23:00 Intake Total 1000 ml 475 ml 360 ml Output Total 700 ml 1075 ml 1450 ml Balance 300 ml -600 ml -1090 ml Intake Oral 475 ml 360 ml IV Total 1000 ml Output Urine Total 700 ml 1075 ml 1450 ml # Bowel Movements 1 0 Result Diagram: 10/06/17 1005 10/06/17 1005 Imaging Last Impressions Thoracic Spine MRI 10/02/17 Signed Impressions: CONCLUSION: 1. Old compression fractures of T12 and L1. 2. No abnormal signal identified within the thoracic cord. 3. Degenerated discs throughout the mid and lower thoracic spine with small br oad-based disc bulges but no significant neural foraminal stenosis or spinal st enosis. Renal Ultrasound 10/02/17 Signed Impressions: CONCLUSION: 1. Sonographic findings consistent with underlying medical renal disease. 2. No obstruction. 3. Left renal cyst. Lumbar Spine MRI 10/02/17 Signed Impressions: CONCLUSION: 1. Moderate size posterior central to right parasagittal protrusion at the L2- 3 level with mass effect on the thecal sac. 2. Disc bulges at the L3-4 through L5-S1 levels. 3. Multiple compression fracture deformities which appear chronic. 4. Abnormal marrow signal involving the T12 and L1 vertebral bodies as well as portions of the sacrum. This is of concern for the patient's known myeloma. 5. Degenerative disc and degenerative joint changes. Objective Remarks GENERAL: This is a well-nourished, well-developed patient, in no apparent distress. CARDIOVASCULAR: Regular rate and rhythm without murmurs, gallops, or rubs. RESPIRATORY: Clear to auscultation. Breath sounds equal bilaterally. No wheezes , rales, or rhonchi. GASTROINTESTINAL: Abdomen soft, non-tender, nondistended. No guarding. MUSCULOSKELETAL: Extremities without clubbing, cyanosis. NEUROLOGICAL: Awake and alert. Normal speech. Procedures none A/P Problem List: (1) Acute renal failure ICD Code: N17.9 - Acute kidney failure, unspecified (2) Multiple myeloma ICD Code: C90.00 - Multiple myeloma not having achieved remission Status: Chronic Assessment and Plan Mr. Ambrosio is a 52 y/o male desiring only holistic treatment of multiple myeloma diagnosed in June 2017 with history of atrial fibrillation s/p cardioversion x 3 - not on anticoagulation, chronic back pain, and right shoulder staph infection who presented to the ER on 09/30/17 at [facility] for evaluation of chronic back pain and inability to ambulate. 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 Acute Renal Failure BUN 56, creatinine 4.70, and eGFR 13 on admission Received IVF with NS at 84 cc/hr consult nephrology - appreciate assistance avoid nephrotoxins Osteopenia, compression fractures CT thoracic and lumbar spine from [place] show thoracic spine: "old compression fx involving t12 without significant change from MRI 07/20. Extensive area f osteopenia involving multiple thoracici vertebral bodies likely reflective of the patient's known multiple myeloma". Lumbar spine: "recent compression fx involving L1 and L3 level new since MRI performed 07/20. No retropulsion. Central disc protrusion at the L2 - L3 level resulting in central stenosis with borderline central stenosis at L4 - L5 and L5 - s1 levels." Check left hip x-ray due to patient c/o pain check MRI thoracic and lumbar spine for further evaluation reviewed Consult neurosurgery. No indication for surgery at this time might consider injections with steroids can be done as outpatient. Clear patient for discharge. [place] DCd. Placed on oxycodone PO per pain scale. Dilaudid for breakthrough pain Robaxin 750 mg q8h prn muscle spasm Multiple Myeloma s/p two units of PRBCs and 1 unit of platelets at [place] recheck CBC in a.m. - transfuse as needed patient will discuss with whether or not they want a second oncology opinion. Patient doesn't want any further work up or treatment. Wants to go back to [facility]. Anemia likely of chronic disease. Type and screen. Transfused 2 units of blood. Repeat H&H. Transfuse if hemoglobin less than 7 or if the patient is symptomatic. Repeat HGB stable. DVT prophylaxis - SCDs/TEDs - chemoprophylaxis contraindicated by severe anemia Discussed Condition With Patient, nurse, family at bedside. Discussed with Flora from palliative care. Discussed with case management. DC plan: The patient and family decided they want to go back to [facility]. However patient went to ED and was not admitted to the hospital. Patient can't walk and will likely need SNF. Physical therapy consulted for evaluation and recommendations, recommends SNF. PT recommends. rehab. CM is following for DC plan. Clover Sanchez MD Oct 07, 2017 11:13
[2017-10-07 12:00] VITALS: BP 143/86; PULSE 74; RESP 18; TEMP 97.4; O2SAT 96
== END 2017-10-07 19:57 | DRG 683 ==
LOC: N07B 10-01
PROVIDERS: ADMIT Hospitalist; ATTEND Hospitalist
PROC: 30233N1 Transfusion of Nonautologous Red Blood Cells into Peripheral Vein, Percutaneous Approach (ICD-10-PCS; principal; 2017-10-01)
DX: N17.9 Acute kidney failure, unspecified (principal); C90.00 Multiple myeloma not having achieved remission; D69.59 Other secondary thrombocytopenia; M48.54XA Collapsed vertebra, not elsewhere classified, thoracic region, initial encounter for fracture; N28.1 Cyst of kidney, acquired; M48.56XA Collapsed vertebra, not elsewhere classified, lumbar region, initial encounter for fracture; E83.52 Hypercalcemia; M51.16 Intervertebral disc disorders with radiculopathy, lumbar region; M48.061 Spinal stenosis, lumbar region without neurogenic claudication; E86.0 Dehydration; N18.9 Chronic kidney disease, unspecified; D63.0 Anemia in neoplastic disease; N08 Glomerular disorders in diseases classified elsewhere; T45.2X1A Poisoning by vitamins, accidental (unintentional), initial encounter; E67.3 Hypervitaminosis D; M62.838 Other muscle spasm; M85.80 Other specified disorders of bone density and structure, unspecified site; Z53.29 Procedure and treatment not carried out because of patient's decision for other reasons
CPT/HCPCS: 36430; 72146; 72148; 76775; 80053; 80069; 81001; 82306; 82652; 82784; 83540; 83550; 83883; 83970; 84155; 85007; 85027; 86160; 86334; 86335; 86803; 86850; 86900; 86901; 86920; 86921; 86922; 87340; J0630; J1170; J1940; J7030; J7050; P9016